=== PATIENT | female | born 1995 | race Caucasian/White ===

== ENCOUNTER 2016-08-31 19:18 | Emergency (ER) | payer BC, OTHER ==
[2016-08-31 19:26] VITALS: BP 123/58; PULSE 71; RESP 16; TEMP 98.2
[2016-08-31] MEDS ORDERED: SODIUM CHLORIDE 0.9% 1,000 ML IV ONE (20:19)
[2016-08-31] MEDS ORDERED: ONDANSETRON 4 MG/2 ML VIAL IVP STA (20:19)
[2016-08-31 20:53] LABS: Appearance,Urine Cloudy (Clear); Bacteria,Urine Occasional /hpf; Bilirubin,Urine Negative (Negative); Glucose,Urine (UA) Negative (Negative); Ketones,Urine Negative (Negative); Leukocyte Esterase,Urine Trace (Negative); Nitrite,Urine Negative (Negative); Particle Count 5154; Protein,Urine Trace (Negative); RBC,Urine 6 /hpf (0-5); Specific Gravity,Urine 1.022 (1.001-1.035); Squamous Epithelial Cell,Urine 11 /hpf (0-4); UA Billing (MACRO vs. MICRO) MICRO; WBC,Urine 6 /hpf (0-5)
[2016-08-31 20:57] LABS: ALT 29 U/L (9-52); AST 23 U/L (14-36); Alkaline Phosphatase 65 U/L (38-126); Anion Gap 10 mmol/L; Blood Urea Nitrogen 12 mg/dL (7-17); Calcium 9.2 mg/dL (8.4-10.2); Carbon Dioxide 26 mmol/L (22-30); Chloride 106 mmol/L (98-107); Glucose 84 mg/dL (74-99); Non-African American GFR(MDRD) >60 (>60 ml/min/1.73 sqM); Sodium 142 mmol/L (137-145); Total Bilirubin 0.6 mg/dL (0.2-1.3); Total Protein 6.6 g/dL (6.3-8.2)
--- NOTE | 2016-08-31 21:00 | ED ---
Nausea/Vomiting/Diarrhea HPI - General Chief complaint: Nausea/Vomiting/Diarrhea Stated complaint: Vomiting Source: patient Mode of arrival: ambulatory Limitations: no limitations - History of Present Illness Initial comments: 20-year-old female presented for evaluation of nausea and vomiting since night. She states that initially she was having 3-4 episodes a day but has only had 1 today. There are no palliative or exacerbating factors. Onset was sudden and there was associated migraine and mild periumbilical abdominal pain which she believes is likely due to the vomiting. She further denies any dysuria, diarrhea, constipation, hematuria, vaginal bleeding, vaginal discharge. Her last [place]. Was a week ago and was on time and normal flow. She is not tried any medications for improvement of her symptoms. She states that her 6 month daughter also had onset of symptoms about the same time she did. - Related Data Home Medications Medication Instructions Recorded Confirmed Dextroamphetamine/Amphetamine 10 mg PO DAILY 08/31/16 08/31/16 [Adderall] Previous Rx's Medication Instructions Recorded Ondansetron Odt [Zofran Odt] 4 mg PO Q8HR PRN #10 tab 08/31/16 Allergies Allergy/AdvReac Type Severity Reaction Status Date / Time No Known Allergies Allergy Verified 08/31/16 19:50 Review of Systems ROS Statement: Those systems with pertinent positive or pertinent negative responses have been documented in the HPI. ROS Other: All systems not noted in ROS Statement are negative. Constitutional: Denies: fever, chills Eyes: Denies: eye pain, eye discharge, vision change ENT: Denies: ear pain, throat pain Respiratory: Denies: cough, dyspnea Cardiovascular: Denies: chest pain, palpitations Endocrine: Denies: fatigue, polydipsia, polyuria Gastrointestinal: Reports: abdominal pain, nausea, vomiting. Denies: diarrhea, constipation, hematemesis, melena, hematochezia Genitourinary: Denies: urgency, dysuria, frequency, hematuria, abnormal menses Musculoskeletal: Denies: back pain, arthralgia, myalgia Skin: Denies: rash, lesions Neurological: Denies: headache, weakness Psychiatric: Denies: anxiety, depression Hematological/Lymphatic: Denies: easy bleeding, easy bruising Past Medical History Past Medical History: No Reported History Additional Past Medical History / Comment(s): ovarian cysts History of Any Multi-Drug Resistant Organisms: None Reported Past Surgical History: Tonsillectomy Past Anesthesia/Blood Transfusion Reactions: No Reported Reaction Past Psychological History: ADD/ADHD, Anxiety, Depression Smoking Status: Former smoker Past Alcohol Use History: None Reported Additional Past Alcohol Use History / Comment(s): Patient currently has a tether on her right ankle which she reports is related to "alcohol" Past Drug Use History: None Reported - Past Family History Mother Additional Family Medical History / Comment(s): depression Father Family Medical History: No Reported History Additional Family Medical History / Comment(s): bipolar General Exam Limitations: no limitations General appearance: alert, in no apparent distress Head exam: Present: atraumatic, normocephalic, normal inspection Eye exam: Present: normal appearance, PERRL, EOMI. Absent: scleral icterus, conjunctival injection, periorbital swelling ENT exam: Present: normal exam, mucous membranes moist Neck exam: Present: normal inspection. Absent: tenderness, meningismus, lymphadenopathy Respiratory exam: Present: normal lung sounds bilaterally. Absent: respiratory distress, wheezes, rales, rhonchi, stridor Cardiovascular Exam: Present: regular rate, normal rhythm, normal heart sounds. Absent: systolic murmur, diastolic murmur, rubs, gallop, clicks GI/Abdominal exam: Present: soft, tenderness (Periumbilical, mild), normal bowel sounds. Absent: distended, guarding, rebound, rigid Rectal exam: Present: deferred Extremities exam: Present: normal inspection, full ROM, normal capillary refill. Absent: tenderness, pedal edema, joint swelling, calf tenderness Back exam: Present: normal inspection Neurological exam: Present: alert, oriented X3, CN II-XII intact Psychiatric exam: Present: normal affect, normal mood Skin exam: Present: warm, dry, intact, normal color. Absent: rash Course Vital Signs 08/31/16 19:24 Temperature 98.2 F Pulse Rate 71 Respiratory 16 Rate Blood Pressure 123/58 O2 Sat by Pulse 98 Oximetry Medical Decision Making - Medical Decision Making 20-year-old female presenting for evaluation of nausea and vomiting since night. She's been having 3-4 episodes of diarrhea daily but was only had one today. There is no palliative or provocative factors. On physical examination she has a soft and non-peritoneal abdomen without guarding , rebound, or rigidity. Labs are obtained which revealed no significant abnormalities. The patient was reevaluated and had no recurrence of her nausea vomiting and felt much better after treatment. She was updated on the status of all her labs and through shared decision making it was determined that she would be discharged with instructions to follow-up with her primary care physician but to return to this facility if her symptoms should worsen or persist. The patient acknowledged an understanding of this information and agreed with this plan of care. - Lab Data Result diagrams: 08/31/16 20:30 08/31/16 20:30 Lab Results 08/31/16 08/31/16 08/31/16 Range/Units 20:30 20:30 20:30 WBC 4.7 (3.8-10.6) k/uL RBC 4.34 (3.80-5.40) m/uL Hgb 13.4 (11.4-16.0) gm/dL Hct 37.9 (34.0-46.0) % MCV 87.3 (80.0-100.0) fL MCH 30.8 (25.0-35.0) pg MCHC 35.3 (31.0-37.0) g/dL RDW 12.0 (11.5-15.5) % Plt Count 167 (150-450) k/uL Neutrophils % (Manual) 47.0 % Band Neutrophils % 2.0 % Lymphocytes % (Manual) 40.0 % Monocytes % (Manual) 4.0 % Eosinophils % (Manual) 7.0 % Neutrophils # (Manual) 2.3 (1.3-7.7) k/uL Lymphocytes # (Manual) 1.9 (1.0-4.8) k/uL Monocytes # (Manual) 0.2 (0-1.0) k/uL Eosinophils # (Manual) 0.3 (0-0.7) k/uL Nucleated RBCs 0 (0-0) /100 WBC Reactive Lymphocytes Present Sodium 142 (137-145) mmol/L Potassium 4.0 (3.5-5.1) mmol/L Chloride 106 (98-107) mmol/L Carbon Dioxide 26 (22-30) mmol/L Anion Gap 10 mmol/L BUN 12 (7-17) mg/dL Creatinine 0.60 (0.52-1.04) mg/dL Est GFR (MDRD) Af Amer >60 (>60 ml/min/1.73 sqM) Est GFR (MDRD) Non-Af >60 (>60 ml/min/1.73 sqM) Glucose 84 (74-99) mg/dL Calcium 9.2 (8.4-10.2) mg/dL Total Bilirubin 0.6 (0.2-1.3) mg/dL AST 23 (14-36) U/L ALT 29 (9-52) U/L Alkaline Phosphatase 65 (38-126) U/L Total Protein 6.6 (6.3-8.2) g/dL Albumin 4.2 (3.5-5.0) g/dL Lipase 108 (23-300) U/L Urine Color Urine Appearance (Clear) Urine pH (5.0-8.0) Ur Specific [place] (1.001-1.035) Urine Protein (Negative) Urine Glucose (UA) (Negative) Urine Ketones (Negative) Urine Blood (Negative) Urine Nitrite (Negative) Urine Bilirubin (Negative) Urine Urobilinogen (<2.0) mg/dL Ur Leukocyte Esterase (Negative) Urine RBC (0-5) /hpf Urine WBC (0-5) /hpf Ur Squamous Epith Cells (0-4) /hpf Urine Bacteria (None) /hpf Urine HCG, Qual Not Detected (Not Detectd) 08/31/16 Range/Units 20:30 WBC (3.8-10.6) k/uL RBC (3.80-5.40) m/uL Hgb (11.4-16.0) gm/dL Hct (34.0-46.0) % MCV (80.0-100.0) fL MCH (25.0-35.0) pg MCHC (31.0-37.0) g/dL RDW (11.5-15.5) % Plt Count (150-450) k/uL Neutrophils % (Manual) % Band Neutrophils % % Lymphocytes % (Manual) % Monocytes % (Manual) % Eosinophils % (Manual) % Neutrophils # (Manual) (1.3-7.7) k/uL Lymphocytes # (Manual) (1.0-4.8) k/uL Monocytes # (Manual) (0-1.0) k/uL Eosinophils # (Manual) (0-0.7) k/uL Nucleated RBCs (0-0) /100 WBC Reactive Lymphocytes Sodium (137-145) mmol/L Potassium (3.5-5.1) mmol/L Chloride (98-107) mmol/L Carbon Dioxide (22-30) mmol/L Anion Gap mmol/L BUN (7-17) mg/dL Creatinine (0.52-1.04) mg/dL Est GFR (MDRD) Af Amer (>60 ml/min/1.73 sqM) Est GFR (MDRD) Non-Af (>60 ml/min/1.73 sqM) Glucose (74-99) mg/dL Calcium (8.4-10.2) mg/dL Total Bilirubin (0.2-1.3) mg/dL AST (14-36) U/L ALT (9-52) U/L Alkaline Phosphatase (38-126) U/L Total Protein (6.3-8.2) g/dL Albumin (3.5-5.0) g/dL Lipase (23-300) U/L Urine Color Yellow Urine Appearance Cloudy H (Clear) Urine pH 8.0 (5.0-8.0) Ur Specific [place] 1.022 (1.001-1.035) Urine Protein Trace H (Negative) Urine Glucose (UA) Negative (Negative) Urine Ketones Negative (Negative) Urine Blood Negative (Negative) Urine Nitrite Negative (Negative) Urine Bilirubin Negative (Negative) Urine Urobilinogen 6.0 (<2.0) mg/dL Ur Leukocyte Esterase Trace H (Negative) Urine RBC 6 H (0-5) /hpf Urine WBC 6 H (0-5) /hpf Ur Squamous Epith Cells 11 H (0-4) /hpf Urine Bacteria Occasional H (None) /hpf Urine HCG, Qual (Not Detectd) Disposition Clinical Impression: Nausea and vomiting Disposition: HOME SELF-CARE Condition: Stable Instructions: Acute Nausea and Vomiting (ED) Additional Instructions: Please use medication as discussed. Please follow up with family doctor if symptoms have not improved over the next two days. Please return to the emergency room if your symptoms increase or worsen or for any other concerns. Prescriptions: Ondansetron Odt [Zofran Odt] 4 mg PO Q8HR PRN #10 tab PRN Reason: Nausea Referrals: Yvette Lin DO [Primary Care Provider] - 1-2 days Time of Disposition: 21:51
[2016-08-31 21:02] LABS: CH 31.8; CHCM 36.6; HCT 37.9 % (34.0-46.0); HDW 2.68; HGB 13.4 gm/dL (11.4-16.0); MCH 30.8 pg (25.0-35.0); MCHC 35.3 g/dL (31.0-37.0); MCV 87.3 fL (80.0-100.0); Mean Platelet Volume 7.2; RBC 4.34 m/uL (3.80-5.40); WBC 4.7 k/uL (3.8-10.6); WBC (Perox) 4.57
[2016-08-31 21:22] LABS: Add Differential Manual Differential
[2016-08-31 21:27] LABS: Nucleated Red Blood Cells 0 /100 WBC (0-0); Total Cells Counted 100
[2016-08-31 21:33] LABS: Reactive Lymphocytes Present
== END 2016-08-31 22:36 | disposition home or self-care (01) ==
LOC: EC 19:18
DX: R11.2 Nausea with vomiting, unspecified (principal); R10.33 Periumbilical pain; R19.7 Diarrhea, unspecified; F90.9 Attention-deficit hyperactivity disorder, unspecified type; F32.9 Major depressive disorder, single episode, unspecified; F41.9 Anxiety disorder, unspecified; Z87.891 Personal history of nicotine dependence; Z79.899 Other long term (current) drug therapy
CPT/HCPCS: 99284; 96374; 36415; 80053; 83690; 85025; 81001; 81025; J2405

== ENCOUNTER 2016-09-24 17:12 | Emergency (ER) | payer BC, OTHER ==
[2016-09-24] MEDS ORDERED: KETOROLAC 30 MG/ML 1 ML VIAL IVP STA (18:20)
[2016-09-24] MEDS ORDERED: ONDANSETRON 4 MG/2 ML VIAL IVP STA (18:20)
[2016-09-24] MEDS ORDERED: SODIUM CHLORIDE 0.9% 1,000 ML IV ONE (18:20)
--- NOTE | 2016-09-24 18:25 | ED ---
Abdominal Pain HPI - General Source: patient, RN notes reviewed Mode of arrival: ambulatory Limitations: no limitations <Ethel Gonzalez - Last Filed: 09/24/16 20:12> <[place] Hu - Last Filed: 09/24/16 21:50> - General Chief Complaint: Abdominal Pain Stated Complaint: RT SIDE PAIN, ABDOMINAL PAON Time Seen by Provider: 09/24/16 18:01 - History of Present Illness Initial Comments: Patient is a 20-year-old female presents to the emergency room for evaluation of abdominal pain. Patient states around 1 PM this afternoon she began developing right lower quadrant pain. Patient states pain radiates to her right flank area. Patient states she never had this type of pain before. Patient states she is having 8 out of 10 constant throbbing pain but is not any worse or better with movement. Patient states the pain is making her nauseous but she denies any vomiting. Patient denies fevers or chills. Patient denies history of abdominal surgeries. Patient denies pain or burning during urination , trouble urinating or blood in urine. Patient has a normal vaginal discharge or discomfort. Patient denies history of STDs. Patient denies history of ovarian cyst. Patient states she has a history of one miscarriage and one full- term . Patient states she just ended her menstrual cycle yesterday. Patient denies chest pain or shortness of breath. Patient denies headache or dizziness. (Ethel Gonzalez) - Related Data Home Medications Medication Instructions Recorded Confirmed Dextroamphetamine/Amphetamine 10 mg PO DAILY 08/31/16 09/24/16 [Adderall] Previous Rx's Medication Instructions Recorded Ibuprofen [Motrin] 400 mg PO Q6HR PRN #20 tab 09/24/16 Allergies Allergy/AdvReac Type Severity Reaction Status Date / Time No Known Allergies Allergy Verified 09/24/16 18:14 Review of Systems ROS Other: All systems not noted in ROS Statement are negative. <Ethel Gonzalez - Last Filed: 09/24/16 20:12> ROS Other: All systems not noted in ROS Statement are negative. <[place] Hu - Last Filed: 09/24/16 21:50> ROS Statement: Those systems with pertinent positive or pertinent negative responses have been documented in the HPI. Past Medical History Past Medical History: No Reported History Additional Past Medical History / Comment(s): ovarian cysts History of Any Multi-Drug Resistant Organisms: None Reported Past Surgical History: Tonsillectomy Past Anesthesia/Blood Transfusion Reactions: No Reported Reaction Past Psychological History: ADD/ADHD, Anxiety, Depression Smoking Status: Current every day smoker Past Alcohol Use History: None Reported Additional Past Alcohol Use History / Comment(s): Patient currently has a tether on her right ankle which she reports is related to "alcohol" Past Drug Use History: None Reported - Past Family History Mother Additional Family Medical History / Comment(s): depression Father Family Medical History: No Reported History Additional Family Medical History / Comment(s): bipolar <Ethel Gonzalez - Last Filed: 09/24/16 20:12> General Exam Limitations: no limitations General appearance: alert, in no apparent distress Head exam: Present: atraumatic, normocephalic, normal inspection Eye exam: Present: normal appearance ENT exam: Present: normal exam Neck exam: Present: normal inspection Respiratory exam: Present: normal lung sounds bilaterally. Absent: respiratory distress Cardiovascular Exam: Present: regular rate, normal rhythm, normal heart sounds GI/Abdominal exam: Present: soft, tenderness (right lower quadrant), normal bowel sounds. Absent: distended, guarding, rebound, rigid Extremities exam: Present: normal inspection Back exam: Present: normal inspection, CVA tenderness (R). Absent: CVA tenderness (L) Neurological exam: Present: alert, oriented X3, CN II-XII intact, normal gait Psychiatric exam: Present: normal affect, normal mood Skin exam: Present: warm, dry, intact, normal color. Absent: rash <Ethel Gonzalez - Last Filed: 09/24/16 20:12> <[place] Hu - Last Filed: 09/24/16 21:50> - General Exam Comments Initial Comments: sitting up in exam room, no acute distress. (Ethel Gonzalez) Medical Decision Making - Lab Data Result diagrams: 09/24/16 18:39 09/24/16 18:39 - Radiology Data Radiology results: report reviewed, image reviewed <Ethel Gonzalez - Last Filed: 09/24/16 20:12> - Lab Data Result diagrams: 09/24/16 18:39 09/24/16 18:39 <[place] Hu - Last Filed: 09/24/16 21:50> - Medical Decision Making patient is a 20-year-old female presents to the emergency room for evaluation of right lower quadrant pain. Ultrasound shows no evidence of ovarian torsion or ovarian cyst. Appendix not fully visualized on ultrasound. Case discussed with Dr. Hu. Computed tomography scan of abdomen and pelvis pending. Case passed on to Dr. Hu at 8:15 PM. (Ethel Gonzalez) medical decision making the patient's white count 5 hemoglobin 12.9 hematocrit 37 with a potassium 4.0 BUN 8 creatinine 0.55 GFR greater than 60. Glucose 89. Amylase lipase within normal limits. Urine clean. is negative. Patient has CT the abdomen with contrast to rule out appendicitis. The radiologist's dictation is normal appendix. There is a small right ovarian follicle. Patient has had a history of ovarian cysts in the past. Reexamination at this time finds patient without rebound no reported no referred pain. The pain she had earlier subsided. No pain with deep palpation over McBurney's point mild discomfort with deep palpation in the very lowest most part of the abdomen. We did discuss ovarian cysts. The plan the patient be advised to use ibuprofen 600 mg at home follow with family physician or OB/ CHIEF INTERNAL AUDITOR as needed. Return emergency room with condition changes. Dr. Hu ([place] Hu) - Lab Data Lab Results 09/24/16 09/24/16 09/24/16 Range/Units 18:39 18:39 19:00 WBC 5.0 (3.8-10.6) k/uL RBC 4.09 (3.80-5.40) m/uL Hgb 12.9 (11.4-16.0) gm/dL Hct 37.6 (34.0-46.0) % MCV 91.9 (80.0-100.0) fL MCH 31.5 (25.0-35.0) pg MCHC 34.3 (31.0-37.0) g/dL RDW 12.8 (11.5-15.5) % Plt Count 180 (150-450) k/uL Neutrophils % 64 % Lymphocytes % 25 % Monocytes % 5 % Eosinophils % 3 % Basophils % 1 % Neutrophils # 3.2 (1.3-7.7) k/uL Lymphocytes # 1.3 (1.0-4.8) k/uL Monocytes # 0.3 (0-1.0) k/uL Eosinophils # 0.2 (0-0.7) k/uL Basophils # 0.0 (0-0.2) k/uL Sodium 140 (137-145) mmol/L Potassium 4.0 (3.5-5.1) mmol/L Chloride 107 (98-107) mmol/L Carbon Dioxide 26 (22-30) mmol/L Anion Gap 7 mmol/L BUN 8 (7-17) mg/dL Creatinine 0.55 (0.52-1.04) mg/dL Est GFR (MDRD) Af Amer >60 (>60 ml/min/1.73 sqM) Est GFR (MDRD) Non-Af >60 (>60 ml/min/1.73 sqM) Glucose 89 (74-99) mg/dL Calcium 9.5 (8.4-10.2) mg/dL Total Bilirubin 0.7 (0.2-1.3) mg/dL AST 19 (14-36) U/L ALT 26 (9-52) U/L Alkaline Phosphatase 70 (38-126) U/L Total Protein 7.2 (6.3-8.2) g/dL Albumin 4.6 (3.5-5.0) g/dL Amylase 49 (30-110) U/L Lipase 97 (23-300) U/L Urine Color Urine Appearance (Clear) Urine pH (5.0-8.0) Ur Specific [place] (1.001-1.035) Urine Protein (Negative) Urine Glucose (UA) (Negative) Urine Ketones (Negative) Urine Blood (Negative) Urine Nitrite (Negative) Urine Bilirubin (Negative) Urine Urobilinogen (<2.0) mg/dL Ur Leukocyte Esterase (Negative) Urine WBC (0-5) /hpf Urine Bacteria (None) /hpf Urine HCG, Qual Not Detected (Not Detectd) 09/24/16 Range/Units 19:00 WBC (3.8-10.6) k/uL RBC (3.80-5.40) m/uL Hgb (11.4-16.0) gm/dL Hct (34.0-46.0) % MCV (80.0-100.0) fL MCH (25.0-35.0) pg MCHC (31.0-37.0) g/dL RDW (11.5-15.5) % Plt Count (150-450) k/uL Neutrophils % % Lymphocytes % % Monocytes % % Eosinophils % % Basophils % % Neutrophils # (1.3-7.7) k/uL Lymphocytes # (1.0-4.8) k/uL Monocytes # (0-1.0) k/uL Eosinophils # (0-0.7) k/uL Basophils # (0-0.2) k/uL Sodium (137-145) mmol/L Potassium (3.5-5.1) mmol/L Chloride (98-107) mmol/L Carbon Dioxide (22-30) mmol/L Anion Gap mmol/L BUN (7-17) mg/dL Creatinine (0.52-1.04) mg/dL Est GFR (MDRD) Af Amer (>60 ml/min/1.73 sqM) Est GFR (MDRD) Non-Af (>60 ml/min/1.73 sqM) Glucose (74-99) mg/dL Calcium (8.4-10.2) mg/dL Total Bilirubin (0.2-1.3) mg/dL AST (14-36) U/L ALT (9-52) U/L Alkaline Phosphatase (38-126) U/L Total Protein (6.3-8.2) g/dL Albumin (3.5-5.0) g/dL Amylase (30-110) U/L Lipase (23-300) U/L Urine Color Light Yellow Urine Appearance Clear (Clear) Urine pH 6.5 (5.0-8.0) Ur Specific [place] 1.003 (1.001-1.035) Urine Protein Negative (Negative) Urine Glucose (UA) Negative (Negative) Urine Ketones Negative (Negative) Urine Blood Small H (Negative) Urine Nitrite Negative (Negative) Urine Bilirubin Negative (Negative) Urine Urobilinogen <2.0 (<2.0) mg/dL Ur Leukocyte Esterase Negative (Negative) Urine WBC 1 (0-5) /hpf Urine Bacteria Rare H (None) /hpf Urine HCG, Qual (Not Detectd) Disposition <Ethel Gonzalez - Last Filed: 09/24/16 20:12> Time of Disposition: 21:50 <Fritz,[place] - Last Filed: 09/24/16 21:50> Clinical Impression: Ovarian cyst Disposition: HOME SELF-CARE Condition: Fair Instructions: Ovarian Cyst (ED) Additional Instructions: Take ibuprofen 400 mg every 6 hours for pain. Follow-up family physician return emergency room as needed Prescriptions: Ibuprofen [Motrin] 400 mg PO Q6HR PRN #20 tab PRN Reason: Pain Referrals: Yvette Lin DO [Primary Care Provider] - 1-2 days
[2016-09-24 18:52] LABS: Basophils % (A) 1 %; CH 31.8; CHCM 34.7; Eosinophils # (A) 0.2 k/uL (0-0.7); Eosinophils % (A) 3 %; HCT 37.6 % (34.0-46.0); HDW 2.49; HGB 12.9 gm/dL (11.4-16.0); Luc # (Auto) 0.09; Luc % (Auto) 2; Lymphocytes # (A) 1.3 k/uL (1.0-4.8); Lymphocytes % (A) 25 %; MCH 31.5 pg (25.0-35.0); MCHC 34.3 g/dL (31.0-37.0); MCV 91.9 fL (80.0-100.0); Mean Platelet Volume 7.4; Monocytes # (A) 0.3 k/uL (0-1.0); Monocytes % (A) 5 %; Neutrophils # (A) 3.2 k/uL (1.3-7.7); Neutrophils % (A) 64 %; RBC 4.09 m/uL (3.80-5.40); RDW 12.8 % (11.5-15.5); WBC (Perox) 5.21
[2016-09-24 19:07] LABS: ALT 26 U/L (9-52); AST 19 U/L (14-36); Alkaline Phosphatase 70 U/L (38-126); Amylase 49 U/L (30-110); Anion Gap 7 mmol/L; Blood Urea Nitrogen 8 mg/dL (7-17); Calcium 9.5 mg/dL (8.4-10.2); Carbon Dioxide 26 mmol/L (22-30); Chloride 107 mmol/L (98-107); Glucose 89 mg/dL (74-99); Non-African American GFR(MDRD) >60 (>60 ml/min/1.73 sqM); Sodium 140 mmol/L (137-145); Total Bilirubin 0.7 mg/dL (0.2-1.3); Total Protein 7.2 g/dL (6.3-8.2)
[2016-09-24 19:25] LABS: Appearance,Urine Clear (Clear); Bacteria,Urine Rare /hpf; Bilirubin,Urine Negative (Negative); Glucose,Urine (UA) Negative (Negative); Ketones,Urine Negative (Negative); Leukocyte Esterase,Urine Negative (Negative); Nitrite,Urine Negative (Negative); PH, Urine 6.5 (5.0-8.0); Particle Count 1100; Protein,Urine Negative (Negative); Specific Gravity,Urine 1.003 (1.001-1.035); UA Billing (MACRO vs. MICRO) MICRO; Urobilinogen,Urine <2.0 mg/dL (<2.0); WBC,Urine 1 /hpf (0-5)
--- NOTE | 2016-09-24 20:05 | US ---
EXAMINATION TYPE: US abdomen APPY DATE OF EXAM: 09/24/2016 COMPARISON: NONE CLINICAL HISTORY: Pain. APPENDIX AP Diameter (normal < 6mm): 4 mm Measured outer wall to outer wall. Is the appendix seen in its entirety from the proximal cecum to distal end: No. The appendix is not visualized in its entirety. There is a tube like structure visualized in the RLQ measuring 0.4 cm Is the appendix compressible: Yes, this area is compressable Does the appendix wall appear hypervascular: No Is an appendicolith present: No Is there inflammatory changes or free fluid present: No IMPRESSION: Partially visualized appendix appears within normal limits although it is not seen in it s entirety.
[2016-09-24] MEDS ORDERED: HYDROmorphone 1 MG/ML 1 ML SYRINGE IVP STA (20:06)
--- NOTE | 2016-09-24 20:06 | US ---
EXAMINATION TYPE: US transvaginal DATE OF EXAM: 09/24/2016 COMPARISON: Prior in PACS CLINICAL HISTORY: RLQ Pain. TECHNIQUE: Transvaginal (TV) Date of LMP: 09/19/2016 EXAM MEASUREMENTS: Uterus: 6.6 x 2.7 x 4.4 cm Endometrial Stripe: 0.5 cm Right Ovary: 4.3 x 2.8 x 2.7 cm Left Ovary: 3.4 x 2.3 x 2.3 cm 1. Uterus: Anteverted wnl 2. Endometrium: wnl 3. Right Ovary: Multiple follicles visualized, largest measuring 2.2 x 1.1 x 1.5 cm 4. Left Ovary: Multiple follicles visualized Spectral, color and waveform doppler imaging shows good arterial and venous flow within the ovaries ; there is no evidence for ovarian torsion. 5. Bilateral Adnexa: wnl 6. Posterior cul-de-sac: wnl IMPRESSION: 1. Small ovarian follicles noted bilaterally. Otherwise unremarkable study.
[2016-09-24] MEDS ORDERED: RX INFO: IV CONTRAST WAS GIVEN 1 EACH MISC MISCELLANE PRN (20:10)
--- NOTE | 2016-09-24 20:43 | CT ---
EXAMINATION TYPE: CT abdomen pelvis w con DATE OF EXAM: 09/24/2016 COMPARISON: NONE HISTORY: Right sided Abdominal pain CT DLP: 319.1 mGycm CONTRAST: CT scan of the abdomen and pelvis is performed without Oral Contrast and with IV Contrast, patient in jected with 100 mL of Omnipaque 300. FINDINGS: LUNG BASES-: No visible nodule. No infiltrate. LIVER/GB: No calcified gallstones. No space occupying hepatic lesion. Biliary tree is of normal ca liber. PANCREAS: No inflammation. No distinct mass. SPLEEN: No splenic enlargement. No lesion seen. ADRENALS: No nodule. No thickening. KIDNEYS/BLADDER: No hydronephrosis. No nephrolithiasis. No disctinct renal mass. Urinary bladder g rossly unremarkable. BOWEL: Normal appendix. Normal bowel caliber. No inflammation. GENITAL ORGANS: Small right ovarian follicular cyst. The uterus and left ovary are grossly unremarka ble. LYMPH NODES: No greater than 1cm abdominal or pelvic lymph nodes are appreciated. AORTA: No significant abnormality. OSSEOUS STRUCTURES: No significant abnormality is seen. OTHER: No significant additional abnormality is seen. IMPRESSION: 1. Normal appendix. No acute process identified. 2. Small right ovarian follicle.
[2016-09-24 22:14] VITALS: BP 104/61; PULSE 66; RESP 18; TEMP 98.1
== END 2016-09-24 22:14 | disposition home or self-care (01) ==
LOC: EC 17:12
DX: N83.201 Unspecified ovarian cyst, right side (principal); R10.31 Right lower quadrant pain; R11.0 Nausea; F90.9 Attention-deficit hyperactivity disorder, unspecified type; F32.9 Major depressive disorder, single episode, unspecified; F41.9 Anxiety disorder, unspecified; F17.200 Nicotine dependence, unspecified, uncomplicated; Z79.899 Other long term (current) drug therapy
CPT/HCPCS: 36415; 80053; 82150; 83690; 85025; 81001; 81025; 93975; 76705; 76830; 74177; 99284; 96374; 96375 ×2; 96361 ×2; J2405; J1885; J1170; Q9967

== ENCOUNTER 2017-06-03 12:06 | Outpatient (CLI) | payer BC, OTHER ==
[2017-06-03 14:14] VITALS: BP 125/64; PULSE 102; RESP 16; TEMP 98
--- NOTE | 2017-06-04 08:30 | P.MSEPDOC ---
Presenting Problems - Arrival Data Date of Arrival on Unit: 06/03/17 Time of Arrival on Unit: 12:06 Mode of Transport: Ambulatory - Complaint OB-Reason for Admission/Chief Complaint: Rule Out PROM Medical History - Information : 2 Para: 1 Term: 1 : 0 Abortions: Spontaneous or Elective: 0 Number of Living Children: 1 - Gestational Age Gestational Age by ORTIZ (wks/days): 34 Weeks and 6 Days Review of Systems - Review of Systems Constitutional: No problems Breast: No problems ENT: No problems Cardiovascular: No problems Respiratory: No problems Gastrointestinal: No problems Genitourinary: No problems Musculoskeletal: No problems Neurological: No problems Skin: No problems Vital Signs - Temperature Temperature: 98.0 F Temperature Source: Tympanic - Pulse Right Brachial Pulse Rate: 102 - Respirations Respiratory Rate: 16 Oxygen Delivery Method: Room Air - Blood Pressure Right Arm Blood Pressure: 125/64 Blood Pressure Mean: 84 Blood Pressure Source: Automatic Cuff Medical Screen Scoring (Pre) - Cervical Exam Dilation: 1-3 cm = 1 Effacement: More than 50% = 2 Membranes: Intact - Uterine Contractions Frequency: N/A Duration: N/A Intensity: N/A - Maternal Vital Signs Maternal Temperature: N/A Maternal Blood Pressure: N/A Signs of Preeclampsia: N/A Maternal Respirations: N/A - Pain Assessment Pain Scale Used: Numeric (1 - 10) Pain Intensity: 0 Pain Management Goal: 0 - Maternal Trauma Maternal Trauma: N/A - Assessment Baseline FHR: 155 Heart Rate - NICHD Category: Category I (Normal) = 0 - Total Score Total Score (Pre): 3 - Level of Risk Level of Risk: Low (0-5) Physician Notification (Pre) - Physician Notified Physician Notified Date: 06/03/17 Physician Notified Time: 13:00 Physician/Practitioner Notifed:: Dr. Valentine Spoke With: Dr. Valentine New Order Received: Yes - Notification Comment Comment: D/C home Disposition - Disposition OB Disposition: Discharge to home Discharge Date: 06/03/17 Discharge Time: 13:15 I agree with the RN Medical Screening Exam: Yes Risk & Benefit of care provided described in d/c instruction: Yes Diagnosis: FALSE LABOR BEFORE 37 COMPLETED WEEKS OF GEST, THIRD TRI
== END 2017-06-03 13:15 | disposition home or self-care (01) ==
LOC: FBPOP 12:06
PROVIDERS: ATTEND Obstetrics & Gynecology
DX: O47.03 False labor before 37 completed weeks of gestation, third trimester (principal); Z3A.34 34 weeks gestation of pregnancy
CPT/HCPCS: 59025; 84112; 99213

== ENCOUNTER 2017-06-12 06:55 | Outpatient (CLI) | payer BC, OTHER ==
[2017-06-12 08:11] VITALS: BP 126/76; PULSE 105; RESP 16; TEMP 97.2
--- NOTE | 2017-06-12 08:38 | P.MSEPDOC ---
Presenting Problems - Arrival Data Date of Arrival on Unit: 06/12/17 Time of Arrival on Unit: 06:55 Mode of Transport: Ambulatory - Complaint OB-Reason for Admission/Chief Complaint: Possible Onset of Labor Comment: contractions since 0200, 2-3 min Medical History - Information : 2 Para: 1 Term: 1 : 0 Abortions: Spontaneous or Elective: 0 Number of Living Children: 1 - Gestational Age Gestational Age by ORTIZ (wks/days): 36 Weeks and 1 Days Review of Systems - Review of Systems Constitutional: No problems Breast: No problems ENT: No problems Cardiovascular: No problems Respiratory: No problems Gastrointestinal: No problems Genitourinary: No problems Musculoskeletal: No problems Neurological: No problems Skin: No problems Vital Signs - Temperature Temperature: 97.2 F Temperature Source: Temporal Artery Scan - Pulse Right Pulse Rate: 105 Pulse Assessment Method: Automatic Cuff - Respirations Respiratory Rate: 16 Oxygen Delivery Method: Room Air O2 Sat by Pulse Oximetry: 99 - Blood Pressure Right Arm Blood Pressure: 126/76 Blood Pressure Mean: 92 Blood Pressure Source: Automatic Cuff Medical Screen Scoring (Pre) - Cervical Exam Dilation: 1-3 cm = 1 - Uterine Contractions Frequency: > or = 36 weeks =2 Duration: > 40 seconds = 2 - Maternal Vital Signs Maternal Temperature: N/A Maternal Blood Pressure: N/A Signs of Preeclampsia: N/A Maternal Respirations: N/A - Pain Assessment Pain Location and Character: Abdomen Pain Scale Used: Numeric (1 - 10) Pain Intensity: 5 Pain Description: *Acute, Tightness Pain Frequency: Intermittent Pain Duration: 4 Pain Duration Units: Hours Pain Behavior: None Exhibited Pain Aggravating Factors: Contractions Non-Pharmacological Interventions: Darkened Room, Reduce Environmental Stimuli - Maternal Trauma Maternal Trauma: N/A - Assessment Baseline FHR: 135 Heart Rate - NICHD Category: Category I (Normal) = 0 NST: Reactive Position: N/A Station: N/A - Total Score Total Score (Pre): 5 - Level of Risk Level of Risk: Low (0-5) Disposition - Disposition OB Disposition: Triage I agree with the RN Medical Screening Exam: Yes Risk & Benefit of care provided described in d/c instruction: Yes Diagnosis: FALSE LABOR BEFORE 37 COMPLETED WEEKS OF GEST, THIRD TRI
== END 2017-06-12 08:35 | disposition home or self-care (01) ==
LOC: FBPOP 06:55
PROVIDERS: ATTEND Obstetrics & Gynecology
DX: O47.03 False labor before 37 completed weeks of gestation, third trimester (principal); Z3A.36 36 weeks gestation of pregnancy
CPT/HCPCS: 59025; 99213

== ENCOUNTER 2017-06-13 22:25 | Outpatient (CLI) | payer BC, OTHER ==
[2017-06-13 23:19] VITALS: BP 134/67; PULSE 98; RESP 16; TEMP 97.8
--- NOTE | 2017-07-08 17:37 | P.MSEPDOC ---
Presenting Problems - Arrival Data Date of Arrival on Unit: 06/13/17 Time of Arrival on Unit: 22:28 Mode of Transport: Ambulatory - Complaint OB-Reason for Admission/Chief Complaint: Rule Out PROM Comment: small trickle of clear fluid noted by patient about 1 hour before arrival on unit. Medical History - Information : 2 Para: 1 Term: 1 : 0 Abortions: Spontaneous or Elective: 0 Number of Living Children: 1 - Gestational Age Gestational Age by ORTIZ (wks/days): 36 Weeks and 2 Days Review of Systems - Review of Systems Constitutional: No problems Breast: No problems ENT: No problems Cardiovascular: No problems Respiratory: No problems Gastrointestinal: No problems Genitourinary: No problems Musculoskeletal: No problems Neurological: No problems Skin: No problems Vital Signs - Temperature Temperature: 97.8 F Temperature Source: Temporal Artery Scan - Pulse Right Sitting Brachial Pulse Rate: 98 Pulse Assessment Method: Automatic Cuff - Respirations Respiratory Rate: 16 Oxygen Delivery Method: Room Air - Blood Pressure Right Arm Sitting Blood Pressure: 134/67 Blood Pressure Mean: 89 Blood Pressure Source: Automatic Cuff Medical Screen Scoring (Pre) - Cervical Exam Dilation: 1-3 cm = 1 Effacement: Exam Deferred Membranes: Intact - Uterine Contractions Frequency: N/A Duration: N/A Intensity: N/A - Maternal Vital Signs Maternal Temperature: N/A Maternal Blood Pressure: N/A Signs of Preeclampsia: N/A Maternal Respirations: N/A - Pain Assessment Pain Location and Character: Lower, Abdomen Pain Scale Used: Numeric (1 - 10) Pain Intensity: 4 Pain Description: Pressure Pain Radiation Location: 0 Pain Frequency: Constant Pain Duration: 1 Pain Duration Units: Hours Pain Behavior: None Exhibited Effects of Pain: 0 Pain Aggravating Factors: None Non-Pharmacological Interventions: Inactivity - Maternal Trauma Maternal Trauma: N/A - Assessment Baseline FHR: 130 Heart Rate - NICHD Category: Category I (Normal) = 0 NST: Reactive Position: N/A - Total Score Total Score (Pre): 1 - Level of Risk Level of Risk: N/A Physician Notification (Pre) - Physician Notified Physician Notified Date: 06/13/17 Physician Notified Time: 22:48 Physician/Practitioner Notifed:: dr quezada Spoke With: dr quezada New Order Received: Yes Disposition - Disposition OB Disposition: Discharge to home Discharge Date: 06/13/17 Discharge Time: 22:55 I agree with the RN Medical Screening Exam: Yes Risk & Benefit of care provided described in d/c instruction: Yes Diagnosis: RELATED CONDITIONS, UNSPECIFIED, THIRD TRIMESTER (r/o srom)
== END 2017-06-13 22:55 | disposition home or self-care (01) ==
LOC: FBPOP 22:25
PROVIDERS: ATTEND Obstetrics & Gynecology
DX: O26.93 Pregnancy related conditions, unspecified, third trimester (principal); Z3A.36 36 weeks gestation of pregnancy
CPT/HCPCS: 59025; 99213

== ENCOUNTER 2017-06-20 23:30 | Outpatient (CLI) | payer BC, OTHER ==
[2017-06-21 01:08] VITALS: BP 117/62; PULSE 103; RESP 16; TEMP 97.2
--- NOTE | 2017-06-21 06:58 | P.MSEPDOC ---
Presenting Problems - Arrival Data Date of Arrival on Unit: 06/20/17 Time of Arrival on Unit: 23:31 Mode of Transport: Wheelchair - Complaint OB-Reason for Admission/Chief Complaint: Possible Onset of Labor Comment: contx all day, became stronger at 2100 Medical History - Information : 2 Para: 1 Term: 1 : 0 Abortions: Spontaneous or Elective: 0 Number of Living Children: 1 - Gestational Age Gestational Age by ORTIZ (wks/days): 37 Weeks and 3 Days Review of Systems - Review of Systems Constitutional: No problems Breast: No problems ENT: No problems Cardiovascular: No problems Respiratory: No problems Gastrointestinal: No problems Genitourinary: No problems Musculoskeletal: No problems Neurological: No problems Skin: No problems Vital Signs - Temperature Temperature: 97.2 F Temperature Source: Temporal Artery Scan - Pulse Right Sitting Brachial Pulse Rate: 103 Pulse Assessment Method: Automatic Cuff - Respirations Respiratory Rate: 16 Oxygen Delivery Method: Room Air O2 Sat by Pulse Oximetry: 98 - Blood Pressure Right Arm Sitting Blood Pressure: 117/62 Blood Pressure Mean: 80 Blood Pressure Source: Automatic Cuff Medical Screen Scoring (Pre) - Cervical Exam Dilation: 4-7 cm = 2 Effacement: More than 50% = 2 Membranes: Intact - Uterine Contractions Frequency: > 5 minutes apart = 1 Duration: N/A Intensity: N/A - Maternal Vital Signs Maternal Temperature: N/A Maternal Blood Pressure: N/A Signs of Preeclampsia: N/A Maternal Respirations: N/A - Pain Assessment Pain Location and Character: Abdomen Pain Scale Used: Numeric (1 - 10) Pain Intensity: 5 Pain Management Goal: 3 Pain Description: *Acute, Cramping Pain Radiation Location: N/A Pain Frequency: Intermittent Pain Duration: 3 Pain Duration Units: Hours Pain Behavior: Vocalization Pain Aggravating Factors: Activity - Assessment Baseline FHR: 125 Heart Rate - NICHD Category: Category II (Indeterminate) = 3 Position: N/A Station: N/A - Total Score Total Score (Pre): 8 - Level of Risk Level of Risk: Medium (6-9) Physician Notification (Pre) - Physician Notified Physician Notified Date: 06/21/17 Physician Notified Time: 00:56 Physician/Practitioner Notifed:: ONEAL Spoke With: oneal Tao Order Received: Yes - Notification Comment Comment: discharge home. Disposition - Disposition OB Disposition: Discharge to home Discharge Date: 06/21/17 Discharge Time: 00:55 I agree with the RN Medical Screening Exam: Yes Risk & Benefit of care provided described in d/c instruction: Yes Diagnosis: FALSE LABOR AT OR AFTER 37 COMPLETED WEEKS OF GESTATION
== END 2017-06-21 00:55 | disposition home or self-care (01) ==
LOC: FBPOP 23:30
PROVIDERS: ATTEND Obstetrics & Gynecology
DX: O47.03 False labor before 37 completed weeks of gestation, third trimester (principal); Z3A.37 37 weeks gestation of pregnancy
CPT/HCPCS: 59025; 99213

== ENCOUNTER 2017-06-24 02:25 | Inpatient (IN) | payer BC, OTHER ==
[2017-06-24] MEDS: LACTATED RINGERS 1,000 ML IV SCH ×3 (03:00→10:29)
[2017-06-24 03:05] VITALS: BMI 31.5
[2017-06-24] MEDS ORDERED: TERBUTALINE 1 MG/ML VIAL SQ PRN (03:05)
[2017-06-24] MEDS ORDERED: LIDOCAINE 1% (PF) 10 MG/ML (30 ML SDV) SQ PRN (03:05)
[2017-06-24] MEDS ORDERED: METHYLERGONOVINE 0.2 MG/ML 1 ML AMP IM PRN (03:05)
[2017-06-24] MEDS ORDERED: OXYTOCIN 10 UNIT/ML 1 ML VIAL IM PRN (03:05)
[2017-06-24] MEDS ORDERED: CARBOPROST TROMETHAMINE 250 MCG/ML 1 ML AMP IM PRN (03:05)
[2017-06-24 03:14] LABS: Basophils % (A) 0 %; Eosinophils # (A) 0.1 k/uL (0-0.7); Eosinophils % (A) 2 %; HCT 32.4 % (34.0-46.0); Lymphocytes # (A) 1.9 k/uL (1.0-4.8); Lymphocytes % (A) 21 %; MCH 31.6 pg (25.0-35.0); MCHC 33.9 g/dL (31.0-37.0); MCV 93.4 fL (80.0-100.0); Mean Platelet Volume 7.6; Monocytes # (A) 0.5 k/uL (0-1.0); Monocytes % (A) 6 %; Neutrophils # (A) 6.2 k/uL (1.3-7.7); Neutrophils % (A) 69 %; Platelet Count 183 k/uL (150-450); RBC 3.47 m/uL (3.80-5.40); RDW 12.3 % (11.5-15.5); WBC 8.9 k/uL (3.8-10.6)
[2017-06-24] MEDS ORDERED: LACTATED RINGERS 1,000 ML IV SCH (03:15)
[2017-06-24] MEDS ORDERED: OXYTOCIN 20 UNITS/1000 ML NS 1,000 ML IV SCH ×2 (03:15→11:40)
--- NOTE | 2017-06-24 09:02 | P.HPOB ---
History of Present Illness H&P Date: 06/24/17 Chief Complaint: Spontaneous rupture of membranes This is a 21-year-old female 2 para 1 at 37-6/7 weeks with an estimated date of confinement of 07/09/2017, who presents with complaints of spontaneous rupture of membranes with clear fluid noted at approximately 2 AM. She was complaining of irregular contractions. course has been uncomplicated. labs: GC/chlamydia-negative Rubella-immune Toxoplasma-negative HIV-nonreactive Hepatitis B surface antigen-negative RPR-nonreactive Random glucose-110 Hemoglobin-11 Blood type-A+ Antibody screen-negative One hour Glucola-113 Group B streptococcus-negative Obstetrical history: . History of 1 vaginal delivery at term with no complications. Gynecologic history: She does have a history of chlamydia treated 4-5 years ago. Review of Systems Constitutional: Denies chills, Denies fever Eyes: denies blurred vision, denies pain Ears, nose, mouth and throat: Denies headache, Denies sore throat Cardiovascular: Denies chest pain, Denies shortness of breath Respiratory: Denies cough Gastrointestinal: Reports abdominal pain (Irregular contractions) Genitourinary: Reports pelvic pain, Reports Musculoskeletal: Reports low back pain Integumentary: Denies pruritus, Denies rash Neurological: Denies numbness, Denies weakness Psychiatric: Denies anxiety, Denies depression Past Medical History Past Medical History: No Reported History Additional Past Medical History / Comment(s): ovarian cysts History of Any Multi-Drug Resistant Organisms: None Reported Past Surgical History: Tonsillectomy Past Anesthesia/Blood Transfusion Reactions: No Reported Reaction Past Psychological History: ADD/ADHD, Anxiety, Depression Smoking Status: Never smoker Past Alcohol Use History: None Reported Past Drug Use History: None Reported - Past Family History Mother Additional Family Medical History / Comment(s): depression Father Family Medical History: No Reported History Additional Family Medical History / Comment(s): bipolar Medications and Allergies Home Medications Medication Instructions Recorded Confirmed Type Pnv,Calcium 72/Iron/Folic Acid 1 tab PO DAILY 06/03/17 06/20/17 History [ Plus Tablet] Allergies Allergy/AdvReac Type Severity Reaction Status Date / Time No Known Allergies Allergy Verified 06/20/17 23:52 Exam Osteopathic Statement: *. No significant issues noted on an osteopathic structural exam other than those noted in the History and Physical/Consult. - Vital Signs Vital signs: Vital Signs Temp Pulse Resp BP Pulse Ox 06/24/17 02:49 96.8 F L 92 16 140/80 98 06/24/17 02:47 96.8 F L 92 16 140/80 98 Intake and Output 06/23/17 06/24/17 06/24/17 22:59 06:59 14:59 Other: # Voids 1 Weight 75.75 kg HEENT: Within normal limits Heart: Regular rate and rhythm Lungs: Clear to auscultation bilaterally Abdomen: Cervix: Currently is 5 cm/80%/-2 station with bag of water still palpated. Artificial rupture of membranes is noted and clear fluid is noted. She did have positive amnisure and she has been leaking clear fluid prior to arrival. heart tones: Reactive Contractions: Irregular Extremities: Negative edema Results Result Diagrams: 06/24/17 03:00 Abnormal Lab Results - Last 24 Hours (Table) 06/24/17 Range/Units 03:00 RBC 3.47 L (3.80-5.40) m/uL Hgb 11.0 L (11.4-16.0) gm/dL Hct 32.4 L (34.0-46.0) % Assessment and Plan (1) 37 weeks gestation of Current Visit: Yes Status: Acute Code(s): Z3A.37 - 37 WEEKS GESTATION OF SNOMED Code(s): 30036524 (2) Spontaneous rupture of membranes Current Visit: Yes Status: Acute Code(s): LOG8154 - SNOMED Code(s): 876944575 Plan: Proceed with oxytocin augmentation of labor. Epidural anesthesia if desired. Expectant management.
[2017-06-24] MEDS ORDERED: fentaNYL (PF) 50 MCG/ML 5 ML AMP ONE (09:06)
[2017-06-24] MEDS ORDERED: BUPIVACAINE (PF) 0.25% 30 ML VIAL ONE (09:06)
[2017-06-24] MEDS ORDERED: SODIUM CHLORIDE 0.9% 100 ML BAG ONE (09:06)
[2017-06-24] MEDS ORDERED: BUPIVACAINE (PF) 0.25% 25 ML, fentaNYL (PF) 200 MCG in SODIUM CHLORIDE 0.9% 71 ML EPIDURAL ONE (09:24)
[2017-06-24] MEDS ORDERED: diphenhydrAMINE 50 MG CAP PO PRN (11:40)
[2017-06-24] MEDS ORDERED: ZOLPIDEM 5 MG TAB PO PRN (11:40)
[2017-06-24] MEDS ORDERED: SIMETHICONE 80 MG CHEWABLE PO PRN (11:40)
[2017-06-24] MEDS ORDERED: LANOLIN CREAM 5 GM TUBE TOPICAL PRN (11:40)
[2017-06-24] MEDS ORDERED: BENZOCAINE/MENTHOL SPRAY 1 GM/SPRAY AEROSOL TOPICAL PRN (11:40)
[2017-06-24] MEDS ORDERED: diphenhydrAMINE 50 MG/ML 1 ML VIAL IVP PRN ×2 (11:40)
[2017-06-24] MEDS ORDERED: WITCH HAZEL 1 EACH MED..PAD TOPICAL PRN (11:40)
[2017-06-24] MEDS ORDERED: ACETAMINOPHEN TAB 325 MG TAB PO PRN (11:40)
[2017-06-24] MEDS ORDERED: diphenhydrAMINE 25 MG CAP PO PRN (11:40)
[2017-06-24] MEDS ORDERED: HYDROCORTISONE 2.5% RECTAL CREAM 30 GM TUBE RECTAL PRN (11:40)
--- NOTE | 2017-06-24 12:30 | P.PROBDLV ---
Vaginal Delivery Note - . Vaginal Delivery Note: The patient reached complete dilation after epidural anesthesia and oxytocin augmentation of labor. She pushed for a short while and then delivered the 's head across an intact perineum in a right occiput anterior lie. Nose and mouth were bulb suctioned at the perineum. Infant had a right nuchal hand that delivered with the posterior shoulder 1st and then the anterior shoulder and body delivered. Infant was placed on mother's abdomen and cord was clamped and cut. A viable female with scores of 9 at 1 minute and 9 ant 5 minutes and infant weight of 7 pounds 2.5 oz. was noted. Placenta delivered shortly thereafter, intact, with a 3 vessel cord. Uterus contracted fairly well after oxytocin was given and uterine massage was carried out. Bladder was also drained. No perineal lacerations were noted. Both mother and infant are in stable condition. Estimated blood loss was 200 cc.
[2017-06-24] MEDS: IBUPROFEN 600 MG TAB PO PRN ×2 (15:01→20:33)
[2017-06-24] MEDS: SENNOSIDES-DOCUSATE SODIUM 1 EACH TAB PO SCH (20:31)
[2017-06-25 07:41] LABS: Basophils % (A) 0 %; Eosinophils # (A) 0.2 k/uL (0-0.7); Eosinophils % (A) 2 %; HCT 26.5 % (34.0-46.0); Lymphocytes # (A) 2.2 k/uL (1.0-4.8); Lymphocytes % (A) 23 %; MCV 94.1 fL (80.0-100.0); Mean Platelet Volume 7.5; Monocytes # (A) 0.5 k/uL (0-1.0); Monocytes % (A) 5 %; Neutrophils # (A) 6.6 k/uL (1.3-7.7); Neutrophils % (A) 68 %; Platelet Count 184 k/uL (150-450); RBC 2.82 m/uL (3.80-5.40); RDW 12.7 % (11.5-15.5); WBC 9.7 k/uL (3.8-10.6)
[2017-06-25] MEDS: SENNOSIDES-DOCUSATE SODIUM 1 EACH TAB PO SCH (08:11)
--- NOTE | 2017-06-25 08:38 | P.DS ---
Providers Date of admission: 06/24/17 02:47 Expected date of discharge: 06/25/17 Attending physician: Nalini Valentine Primary care physician: Stated None - Discharge Diagnosis(es) (1) 37 weeks gestation of Current Visit: Yes Status: Acute (2) Spontaneous rupture of membranes Current Visit: Yes Status: Acute Hospital Course: This is a 21-year-old female 2 para 1 at 37-6/7 weeks who presented with spontaneous rupture of membranes. She underwent oxytocin augmentation of labor and delivered a viable female on 06/24/2017 with scores of 9 at 1 minute and 9 at 5 minutes and infant weight of 7 pounds 2.5 ounces. Her course is been uncomplicated. She is bottle feeding. Her cramping is controlled with ibuprofen and Tylenol. Vital signs are stable. Abdomen is soft with fundus firm and nontender. Extremities show negative Homans. Impression is status post vaginal delivery day #1. Plan is to discharge home today. Routine instructions are given. She is advised to follow up in the office in 6 weeks for check. She will be given a prescription for ibuprofen. She is advised to call the office if she has any further questions or concerns prior to her appointment time. Procedures: Oxytocin augmentation of labor Spontaneous vaginal delivery of a viable female on 06/24/2017 Patient Condition at Discharge: Stable Plan - Discharge Summary New Discharge Prescriptions: No Action Pnv,Calcium 72/Iron/Folic Acid [ Plus Tablet] 1 tab PO DAILY Discharge Medication List Pnv,Calcium 72/Iron/Folic Acid [ Plus Tablet] 1 tab PO DAILY 06/03/17 [ History] Follow up Appointment(s)/Referral(s): Nalini Valentine DO [Doctor of Osteopathic Medicine] - 6 Weeks Activity/Diet/Wound Care/Special Instructions: Instructions 1. Do not begin any exercise program for 3 weeks. 2. Do not resume sexual relations for 3 weeks or longer if uncomfortable. 3. You may take tub baths or showers at any time. 4. You may use tampons if desired after 3 weeks. 5. Keep the area of episiotomy (stitches) clean and dry. 6. If you are not nursing, wear a good fitting, supportive bra during the day and limit fluid intake for at least 1 week to prevent breast engorgement. 7. Call the office, [phone], within the next week to make appointment for your 6 week checkup if it has not already been made. 8. Report any of the following occurrences to the doctor promptly: a. Heavy, excessive bleeding b. Chills, fever c. Burning or frequency of urination d. Pain or redness and breasts if nursing e. Increasing pain or swelling in episiotomy (stitches). In addition to the above instructions, the following additional should be followed: 1. No heavy lifting or straining (exercising) until after 6 week checkup. 2. Keep abdominal incision clean and dry: You may wear a dressing if more comfortable. 3. Make office appointment for 10 days after going home or as instructed by her doctor. Discharge Disposition: HOME SELF-CARE
[2017-06-25] MEDS: IBUPROFEN 600 MG TAB PO PRN (08:44)
[2017-06-25 09:00] VITALS: BP 117/63; PULSE 77; RESP 16; TEMP 97.3
== END 2017-06-25 13:00 | disposition home or self-care (01) | DRG 775 ==
LOC: FBPOP 02:25 → 4FBP 02:47
PROVIDERS: ADMIT Obstetrics & Gynecology; ATTEND Obstetrics & Gynecology
PROC: 10E0XZZ Delivery of Products of Conception, External Approach (ICD-10-PCS; principal; 2017-06-24)
PROC: 3E0R3NZ Introduction of Analgesics, Hypnotics, Sedatives into Spinal Canal, Percutaneous Approach (ICD-10-PCS; principal; 2017-06-24)
DX: O42.92 Full-term premature rupture of membranes, unspecified as to length of time between rupture and onset of labor (principal); O69.81X0 Labor and delivery complicated by cord around neck, without compression, not applicable or unspecified; Z37.0 Single live birth; Z3A.37 37 weeks gestation of pregnancy
CPT/HCPCS: 59025; 84112; 85025; 88307; 99213

== ENCOUNTER → 2017-09-01 | Outpatient (CLI) | payer BC, OTHER ==
[2017-09-01 19:23] LABS: Basophils % (A) 0 %; Eosinophils # (A) 0.2 k/uL (0-0.7); Eosinophils % (A) 5 %; HCT 36.5 % (34.0-46.0); HGB 12.5 gm/dL (11.4-16.0); Lymphocytes # (A) 2.2 k/uL (1.0-4.8); Lymphocytes % (A) 40 %; MCH 29.6 pg (25.0-35.0); MCHC 34.3 g/dL (31.0-37.0); MCV 86.1 fL (80.0-100.0); Monocytes # (A) 0.3 k/uL (0-1.0); Monocytes % (A) 5 %; Neutrophils # (A) 2.6 k/uL (1.3-7.7); Neutrophils % (A) 48 %; Platelet Count 203 k/uL (150-450); RBC 4.24 m/uL (3.80-5.40); RDW 12.3 % (11.5-15.5); WBC 5.4 k/uL (3.8-10.6)
== END | disposition home or self-care (01) ==
LOC: LABMAIN 17:41
PROVIDERS: ATTEND Obstetrics & Gynecology
DX: Z01.812 Encounter for preprocedural laboratory examination (principal)
CPT/HCPCS: 36415; 85025

== ENCOUNTER 2017-09-08 06:10 | Day surgery (SDC) | payer BC, OTHER ==
[2017-09-03 11:49] VITALS: BMI 26.4
--- NOTE | 2017-09-07 19:49 | P.HPOB ---
History of Present Illness H&P Date: 09/07/17 Chief Complaint: Family planning This is a 21-year-old female 2 para 2 who presents for laparoscopic bilateral tubal ligation via fulguration for family planning. She is currently using condoms for control and wishes permanent sterilization. She has signed [facility] paperwork in the office. She is currently . Obstetrical history: . History of 2 vaginal deliveries. Gynecologic history: History of chlamydia treated several years ago. Social history: She is single. Review of Systems Constitutional: Denies chills, Denies fever Ears, nose, mouth and throat: Denies headache, Denies sore throat Cardiovascular: Denies chest pain, Denies shortness of breath Respiratory: Denies cough Gastrointestinal: Denies abdominal pain, Denies diarrhea, Denies nausea, Denies vomiting Genitourinary: Denies dysuria, Denies hematuria Musculoskeletal: Denies myalgias Integumentary: Denies pruritus, Denies rash Neurological: Denies numbness, Denies weakness Psychiatric: Denies anxiety, Denies depression Endocrine: Denies fatigue, Denies weight change Past Medical History Past Medical History: No Reported History Additional Past Medical History / Comment(s): ovarian cysts History of Any Multi-Drug Resistant Organisms: None Reported Past Surgical History: Tonsillectomy Past Anesthesia/Blood Transfusion Reactions: No Reported Reaction Past Psychological History: No Psychological Hx Reported Smoking Status: Never smoker Past Alcohol Use History: None Reported Past Drug Use History: None Reported - Past Family History Mother Additional Family Medical History / Comment(s): depression Father Family Medical History: No Reported History Additional Family Medical History / Comment(s): bipolar Medications and Allergies Home Medications Medication Instructions Recorded Confirmed Type Dextroamphetamine/Amphetamine 15 mg PO QAM 09/03/17 09/03/17 History [Adderall] Allergies Allergy/AdvReac Type Severity Reaction Status Date / Time No Known Allergies Allergy Verified 09/03/17 11:45 Exam Osteopathic Statement: *. No significant issues noted on an osteopathic structural exam other than those noted in the History and Physical/Consult. HEENT: Within normal limits Heart: Regular rate and rhythm Lungs: Clear to auscultation bilaterally Abdomen: Soft, nontender Pelvic exam: Uterus is small, anteverted, with no adnexal masses or tenderness palpated. Extremities: Negative Homans Assessment and Plan (1) Family planning Status: Acute Code(s): Z30.09 - ENCOUNTER FOR OTH GENERAL CNSL AND ADVICE ON CONTRACEPTION SNOMED Code(s): 722015847 Plan: Proceed with laparoscopic bilateral tubal ligation via fulguration. I have discussed the risks, benefits, and alternative therapies for the above- mentioned procedure and for both sedation/anesthesia as well as necessary blood products administration, if indicated, as they pertain to this patient. The patient has indicated her understanding and acceptance of the risks and procedures discussed.
[~2017-09-08 06:10] MED LIST: DEXAMETHASONE SOD PHOSPHATE 10 MG/ML 1 ML VIAL IV ONE; LACTATED RINGERS 1,000 ML IV SCH; LIDOCAINE 1% 20 ML VIAL (10MG/ML) FOR IV START INTRADERMA PRN; MIDAZOLAM 2 MG/2 ML VIAL IV PRN; ONDANSETRON 4 MG/2 ML VIAL IVP PRN; Pre Op ABX Message 1 EACH MISC MISCELLANE ONE; SCOPOLAMINE 1.5MG/72HR PATCH TRANSDERM ONE; fentaNYL (PF) 50 MCG/ML 2 ML AMP IV PRN
[2017-09-08] MEDS ORDERED: ROCURONIUM BROMIDE 10 MG/ML 10 ML VIAL IV ONE (07:30)
[2017-09-08] MEDS ORDERED: GLYCOPYRROLATE 0.2 MG/ML 2 ML VIAL ONE (07:30)
[2017-09-08] MEDS ORDERED: KETOROLAC 30 MG/ML 1 ML VIAL ONE (07:30)
[2017-09-08] MEDS ORDERED: MIDAZOLAM 2 MG/2 ML VIAL ONE (07:30)
[2017-09-08] MEDS ORDERED: NEOSTIGMINE 1 MG/ML 10 ML VIAL ONE (07:30)
[2017-09-08] MEDS ORDERED: fentaNYL (PF) 50 MCG/ML 2 ML AMP ONE (07:30)
[2017-09-08] MEDS ORDERED: PROPOFOL 10 MG/ML 20 ML VIAL IV ONE (07:30)
[2017-09-08] MEDS ORDERED: LIDOCAINE 1% INJ 10MG/ML (20 ML MDV) ONE (07:30)
[2017-09-08] MEDS ORDERED: SUCCINYLCHOLINE CHLORIDE 100 MG/5 ML SYR IV ONE (07:30)
[2017-09-08] MEDS ORDERED: BUPIVACAINE (PF) 0.25% 30 ML VIAL SQ ONE ×2 (07:58→08:03)
--- NOTE | 2017-09-08 08:07 | P.OP ---
Date of Procedure: 09/08/17 Preoperative Diagnosis: Family planning Postoperative Diagnosis: Same Procedure(s) Performed: Laparoscopic bilateral tubal ligation via fulguration Anesthesia: LYNN Surgeon: Nalini Valentine Estimated Blood Loss (ml): 10 Pathology: none sent Condition: stable Disposition: same day Indications for Procedure: This is a 21-year-old female 2 para 2 who presents for laparoscopic bilateral tubal ligation via fulguration for family planning. She is currently using condoms for control and wishes permanent sterilization. She has signed [facility] paperwork in the office. She is currently . Operative Findings: Uterus is small, anteverted, with no adnexal masses palpated. Upon laparoscopy , normal uterus tubes and ovaries are noted. Appendix is partially visualized and appears normal. Description of Procedure: The patient is taken to the operating room where she is placed in the dorsal lithotomy position. She is prepped and draped in the normal sterile fashion. Examination is performed under anesthesia. Uterus is found to be in a anteverted position. No adnexal masses were palpated. Next a bivalve speculum was placed in the patient's vagina. A single-tooth tenaculum was used to grasp the anterior lip of the cervix. The uterus was sounded to 6-1/2 cm. The kroner uterine manipulator was then inserted through the cervix and the balloon was inflated. The single-tooth tenaculum is removed speculum was removed gloves were changed and attention was turned to the abdomen. The infraumbilical fold was grasped in transverse fashion with 2 Allis clamps. A small transverse incision was made with a scalpel. A hemostat was used to carry the incision down to the underlying layer of fascia. A towel clip was placed above the umbilicus for retraction. An 11 mm disposable bladeless trocar was then inserted into the peritoneal cavity under direct visualization. Once inside, pneumoperitoneum was achieved with CO2 gas. The insert was removed and the camera was placed. Intraperitoneal placement was confirmed. No bleeding was noted. Next the patient was placed in Trendelenburg position. A small stab incision was made suprapubically and a 5 mm disposable bladeless trocar was inserted into the peritoneal cavity under direct visualization. Once inside pelvic contents were inspected. Next a bipolar Kleppinger instrument was placed through the inferior trocar and the midportion of each tube was brought away from other structures and completely fulgurated on approximate 2-3 cm segment of each tube. Excellent hemostasis was noted. A picture was taken. Pneumoperitoneum was released after the inferior trocar was removed under direct visualization. The upper trocar was then removed. The fascial incision was closed with 0 Vicryl suture in interrupted [id number] stitch. The skin incisions were then closed with 4-0 Vicryl suture in a subcuticular fashion. Incision sites were then injected with quarter percent Marcaine. Approximately 7 mL were used. Next the kroner uterine manipulator was removed. Minimal bleeding was noted. All sponge and needle counts are correct. The patient is then taken to recovery room in stable condition.
[2017-09-08 08:32] VITALS: TEMP 97.1
[2017-09-08] MEDS ORDERED: Acetaminophen-Codeine 300-30mg TAB PO ONE (10:02)
[2017-09-08 10:24] VITALS: BP 101/64; PULSE 59; RESP 16
== END 2017-09-08 10:36 | disposition home or self-care (01) ==
LOC: OR 06:10
PROVIDERS: ATTEND Obstetrics & Gynecology
DX: Z30.2 Encounter for sterilization (principal); Z79.899 Other long term (current) drug therapy; F17.210 Nicotine dependence, cigarettes, uncomplicated
CPT/HCPCS: 81025; 58670; J2250; J1100; J2710; J2405; J2001; J3010; J1885; J0330; J2704

== ENCOUNTER 2017-09-10 11:56 | Emergency (ER) | payer BC, OTHER ==
[2017-09-10] MEDS ORDERED: ORPHENADRINE 30 MG/ML 2 ML VIAL IVP STA (13:52)
[2017-09-10] MEDS ORDERED: ONDANSETRON 4 MG/2 ML VIAL IVP STA (13:52)
--- NOTE | 2017-09-10 13:56 | ED ---
Abdominal Pain HPI - General Chief Complaint: Abdominal Pain Stated Complaint: POST OP ABDOMINAL PAIN Time Seen by Provider: 09/10/17 13:34 Source: patient, RN notes reviewed, old records reviewed Mode of arrival: ambulatory Limitations: no limitations - History of Present Illness Initial Comments: 21-year-old female presents to the emergency department today chief complaint of increased vaginal bleeding. She reports that she had a tubal ligation procedure by Dr. Valentine 2 days ago. She states that she's been having a heavy bleeding, almost a pad an hour. Patient reports that she was told to come to emergency department if there is any the symptoms. She reports some lower abdominal pain associated with this. She states that her pain medication prescribed since the surgery has not been helping much. She reports some nausea. No fevers or chills. No changes in urination or bowel habits. - Related Data Home Medications Medication Instructions Recorded Confirmed Dextroamphetamine/Amphetamine 15 mg PO QAM 09/03/17 09/10/17 [Adderall] Previous Rx's Medication Instructions Recorded Acetaminophen-Codeine 300-30mg 1 tab PO Q4H PRN 3 Days #18 tablet 09/08/17 [Tylenol w/codeine #3] Ondansetron Odt [Zofran Odt] 4 mg PO Q8HR PRN #12 tab 09/10/17 Allergies Allergy/AdvReac Type Severity Reaction Status Date / Time No Known Allergies Allergy Verified 09/10/17 13:47 Review of Systems ROS Statement: Those systems with pertinent positive or pertinent negative responses have been documented in the HPI. ROS Other: All systems not noted in ROS Statement are negative. Past Medical History Past Medical History: No Reported History Additional Past Medical History / Comment(s): ovarian cysts History of Any Multi-Drug Resistant Organisms: None Reported Past Surgical History: Tonsillectomy, Tubal Ligation Past Anesthesia/Blood Transfusion Reactions: No Reported Reaction Past Psychological History: ADD/ADHD, Anxiety, Depression Smoking Status: Current every day smoker Past Alcohol Use History: None Reported Past Drug Use History: None Reported - Past Family History Mother Additional Family Medical History / Comment(s): depression Father Family Medical History: No Reported History Additional Family Medical History / Comment(s): bipolar General Exam - General Exam Comments Initial Comments: 21-year-old female. Alert and oriented. No acute distress. Limitations: no limitations General appearance: alert, in no apparent distress Head exam: Present: atraumatic, normocephalic, normal inspection Eye exam: Present: normal appearance, PERRL, EOMI. Absent: scleral icterus, conjunctival injection, periorbital swelling ENT exam: Present: normal exam, mucous membranes moist Neck exam: Present: normal inspection. Absent: tenderness, meningismus, lymphadenopathy Respiratory exam: Present: normal lung sounds bilaterally. Absent: respiratory distress, wheezes, rales, rhonchi, stridor Cardiovascular Exam: Present: regular rate, normal rhythm, normal heart sounds. Absent: systolic murmur, diastolic murmur, rubs, gallop, clicks GI/Abdominal exam: Present: soft, normal bowel sounds, other (Well-appearing suprapubic and umbilical surgical site. No erythema or drainage.). Absent: distended, tenderness, guarding, rebound, rigid External exam: Present: normal external exam Speculum exam: Present: vaginal bleeding. Absent: normal speculum exam, erythema, vaginal discharge, cervical discharge, foreign body, tissue, laceration By manual exam: Present: normal by manual exam. Absent: cervical motion tenderness, adnexal tenderness Extremities exam: Present: normal inspection, full ROM, normal capillary refill. Absent: tenderness, pedal edema, joint swelling, calf tenderness Back exam: Present: normal inspection Neurological exam: Present: alert, oriented X3, CN II-XII intact Psychiatric exam: Present: normal affect, normal mood Skin exam: Present: warm, dry, intact, normal color. Absent: rash Course Vital Signs 09/10/17 09/10/17 11:58 15:57 Temperature 98.1 F 98.3 F Pulse Rate 80 78 Respiratory 20 17 Rate Blood Pressure 118/60 118/74 O2 Sat by Pulse 99 99 Oximetry - Reevaluation(s) Reevaluation #1: 09/10/17 15:[address] Pimentel. Will manage the patient's pain. She'll be given nausea medicine. They stated that the bleeding is expected. She can follow-up with her outpatient appointment. Return parameters were discussed. Medical Decision Making - Medical Decision Making 21-year-old female presents return today she played increased vaginal bleeding continues after tube ligation. Show her incision sites appear well. She has some mild tenderness on exam. All her lab work was reviewed and normal. Normal hemoglobin. Pelvic exam did show moderate amount of bleeding, no severe clots. Cervix appeared normal. Patient this case discussed with Dr. Barber. Discussed case with patient's surgeon Dr. Valentine. She states it is normal to have this type of bleeding. She can follow-up with her outpatient appointment in 1 week. I discussed with patient will write her for nausea medicine continuing her Tylenol 3's that she is starting prescribed. Patient will be following up with her. Discussed return parameters. All questions answered. Patient feels better and will be discharged home. - Lab Data Result diagrams: 09/10/17 13:55 09/10/17 13:55 Lab Results 09/10/17 09/10/17 09/10/17 Range/Units 13:55 13:55 13:55 WBC 6.5 (3.8-10.6) k/uL RBC 4.28 (3.80-5.40) m/uL Hgb 12.7 (11.4-16.0) gm/dL Hct 37.6 (34.0-46.0) % MCV 87.9 (80.0-100.0) fL MCH 29.7 (25.0-35.0) pg MCHC 33.8 (31.0-37.0) g/dL RDW 12.7 (11.5-15.5) % Plt Count 200 (150-450) k/uL Neutrophils % 54 % Lymphocytes % 35 % Monocytes % 6 % Eosinophils % 4 % Basophils % 0 % Neutrophils # 3.5 (1.3-7.7) k/uL Lymphocytes # 2.3 (1.0-4.8) k/uL Monocytes # 0.4 (0-1.0) k/uL Eosinophils # 0.2 (0-0.7) k/uL Basophils # 0.0 (0-0.2) k/uL Sodium 142 (137-145) mmol/L Potassium 3.9 (3.5-5.1) mmol/L Chloride 106 (98-107) mmol/L Carbon Dioxide 26 (22-30) mmol/L Anion Gap 10 mmol/L BUN 12 (7-17) mg/dL Creatinine 0.55 (0.52-1.04) mg/dL Est GFR (CKD-EPI)AfAm >90 (>60 ml/min/1.73 sqM) Est GFR (CKD-EPI)NonAf >90 (>60 ml/min/1.73 sqM) Glucose 72 L (74-99) mg/dL Calcium 9.4 (8.4-10.2) mg/dL Urine Color Yellow Urine Appearance Clear (Clear) Urine pH 6.0 (5.0-8.0) Ur Specific [place] 1.021 (1.001-1.035) Urine Protein Trace H (Negative) Urine Glucose (UA) Negative (Negative) Urine Ketones Negative (Negative) Urine Blood Large H (Negative) Urine Nitrite Negative (Negative) Urine Bilirubin Negative (Negative) Urine Urobilinogen 2.0 (<2.0) mg/dL Ur Leukocyte Esterase Negative (Negative) Urine RBC 3 (0-5) /hpf Urine WBC 3 (0-5) /hpf Ur Squamous Epith Cells 2 (0-4) /hpf Urine Mucus Rare H (None) /hpf Disposition Clinical Impression: Vaginal bleeding Disposition: HOME SELF-CARE Condition: Good Instructions: Dysfunctional Uterine Bleeding (ED) Additional Instructions: Patient is follow-up with PCP. Return to emergency department if any alarming signs or symptoms occur. Follow-up with your schedule outpatient appointment with Dr. Valentine. Expect bleeding. Return if there is any worsening signs or symptoms. Prescriptions: Ondansetron Odt [Zofran Odt] 4 mg PO Q8HR PRN #12 tab PRN Reason: Nausea Is patient prescribed a controlled substance at d/c from ED?: No If prescribed controlled substance>3 days was MAPS reviewed?: No When asked, does pt state using other controlled substances?: No Referrals: Yvette Lin DO [Primary Care Provider] - 1-2 days Time of Disposition: 15:25
[2017-09-10] MEDS ORDERED: SODIUM CHLORIDE 0.9% 1,000 ML IV STA (14:01)
[2017-09-10] MEDS ORDERED: SODIUM CHLORIDE 0.9% 500 ML IV STA (14:01)
[2017-09-10 14:15] LABS: Basophils % (A) 0 %; Eosinophils # (A) 0.2 k/uL (0-0.7); Eosinophils % (A) 4 %; HCT 37.6 % (34.0-46.0); HGB 12.7 gm/dL (11.4-16.0); Lymphocytes # (A) 2.3 k/uL (1.0-4.8); Lymphocytes % (A) 35 %; MCH 29.7 pg (25.0-35.0); MCHC 33.8 g/dL (31.0-37.0); MCV 87.9 fL (80.0-100.0); Mean Platelet Volume 6.6; Monocytes # (A) 0.4 k/uL (0-1.0); Monocytes % (A) 6 %; Neutrophils # (A) 3.5 k/uL (1.3-7.7); Neutrophils % (A) 54 %; Platelet Count 200 k/uL (150-450); RBC 4.28 m/uL (3.80-5.40); RDW 12.7 % (11.5-15.5); WBC 6.5 k/uL (3.8-10.6)
[2017-09-10 14:18] LABS: Appearance,Urine Clear (Clear); Bilirubin,Urine Negative (Negative); Blood,Urine Large (Negative); Color,Urine Yellow; Glucose,Urine (UA) Negative (Negative); Ketones,Urine Negative (Negative); Leukocyte Esterase,Urine Negative (Negative); Mucus,Urine Rare /hpf; Nitrite,Urine Negative (Negative); Protein,Urine Trace (Negative); RBC,Urine 3 /hpf (0-5); Specific Gravity,Urine 1.021 (1.001-1.035); Squamous Epithelial Cell,Urine 2 /hpf (0-4); WBC,Urine 3 /hpf (0-5)
[2017-09-10 14:29] LABS: Anion Gap 10 mmol/L; Blood Urea Nitrogen 12 mg/dL (7-17); Calcium 9.4 mg/dL (8.4-10.2); Carbon Dioxide 26 mmol/L (22-30); Chloride 106 mmol/L (98-107); Glucose 72 mg/dL (74-99); Potassium 3.9 mmol/L (3.5-5.1); Sodium 142 mmol/L (137-145)
[2017-09-10] MEDS ORDERED: MORPHINE SULFATE 4 MG/ML SYRINGE IVP ONE (15:07)
[2017-09-10] MEDS ORDERED: KETOROLAC 30 MG/ML 1 ML VIAL IVP STA (15:20)
[2017-09-10 15:58] VITALS: BP 118/74; PULSE 78; RESP 17; TEMP 98.3
== END 2017-09-10 15:57 | disposition home or self-care (01) ==
LOC: EC 11:56
DX: N93.9 Abnormal uterine and vaginal bleeding, unspecified (principal); R10.30 Lower abdominal pain, unspecified; F90.9 Attention-deficit hyperactivity disorder, unspecified type; F32.9 Major depressive disorder, single episode, unspecified; F41.9 Anxiety disorder, unspecified; F17.200 Nicotine dependence, unspecified, uncomplicated; Z79.899 Other long term (current) drug therapy
CPT/HCPCS: 36415; 80048; 85025; 81001; 99284; 96374; 96375 ×3; 96361 ×2; J2270; J2360; J2405; J1885

== ENCOUNTER 2018-10-17 21:50 | Emergency (ER) | payer BC, OTHER ==
[2018-10-17 22:25] VITALS: TEMP 98.2
[2018-10-17] MEDS ORDERED: SODIUM CHLORIDE 0.9% 1,000 ML IV ONE (23:26)
[2018-10-17] MEDS ORDERED: KETOROLAC 30 MG/ML 1 ML VIAL IVP STA (23:26)
[2018-10-17] MEDS ORDERED: ONDANSETRON 4 MG/2 ML VIAL IVP STA (23:26)
--- NOTE | 2018-10-17 23:29 | ED ---
Abdominal Pain HPI - General Chief Complaint: Abdominal Pain Stated Complaint: Abd pain Time Seen by Provider: 10/17/18 23:20 Source: patient, family Mode of arrival: ambulatory Limitations: no limitations - History of Present Illness Initial Comments: 22-year-old female presenting with intermittent right lower quadrant abdominal pain which is not alleviated or exacerbated by anything is been accompanied by constipation. She states she's having intermittent hematuria. She normally has bowel movements every 2 days. She has tried multiple stool softeners without relief. She states that she had her tubes tied she has had multiple episodes of ovarian cysts they normally not accompanied by constipation symptoms. She denies abdominal surgeries, inflammatory bowel disease history, F/C, flank pain, or history of similar symptoms. - Related Data Home Medications Medication Instructions Recorded Confirmed Dextroamphetamine/Amphetamine 15 mg PO QAM 09/03/17 09/10/17 [Adderall] Previous Rx's Medication Instructions Recorded Acetaminophen-Codeine 300-30mg 1 tab PO Q4H PRN 3 Days #18 tablet 09/08/17 [Tylenol w/codeine #3] Ondansetron Odt [Zofran Odt] 4 mg PO Q8HR PRN #12 tab 09/10/17 Cephalexin [Keflex] 500 mg PO Q12HR 7 Days #14 cap 10/18/18 Ibuprofen [Motrin] 600 mg PO Q6HR PRN #30 tab 10/18/18 Lactulose [Cephulac] 10 gm PO BID #1 bottle 10/18/18 Magnesium Citrate [Citrate of 296 ml PO ONCE #296 ml 10/18/18 Magnesia] Ondansetron Odt [Zofran Odt] 4 mg PO Q12HR PRN #20 tab 10/18/18 Allergies Allergy/AdvReac Type Severity Reaction Status Date / Time No Known Allergies Allergy Verified 09/10/17 13:47 Review of Systems ROS Statement: Those systems with pertinent positive or pertinent negative responses have been documented in the HPI. Review of Systems Constitutional: Denies fever, chills Eyes: Denies change in vision, Denies pain Ears, nose, mouth, throat: Denies headaches, Denies sore throat Cardiovascular: Denies chest pain. Denies palpitations Respiratory: Denies shortness of breath, Denies cough Gastrointestinal: Positive abdominal pain. Positive nausea, denies vomiting, diarrhea. Genitourinary: Positive hematuria, Denies infections Musculoskeletal: Denies pain, Denies swelling Integumentary: Denies rash Neurological: Denies headache, focal weakness, focal numbness Psychiatric: Denies anxiety, Denies depression Hematologic/Lymphatic: Denies easy bleeding or bruising ROS Other: All systems not noted in ROS Statement are negative. Past Medical History Past Medical History: No Reported History Additional Past Medical History / Comment(s): ovarian cysts History of Any Multi-Drug Resistant Organisms: None Reported Past Surgical History: Tonsillectomy, Tubal Ligation Past Anesthesia/Blood Transfusion Reactions: No Reported Reaction Past Psychological History: ADD/ADHD, Anxiety, Depression Smoking Status: Current every day smoker Past Alcohol Use History: None Reported Past Drug Use History: None Reported - Past Family History Mother Additional Family Medical History / Comment(s): depression Father Family Medical History: No Reported History Additional Family Medical History / Comment(s): bipolar General Exam - General Exam Comments Initial Comments: General: Awake, alert, No acute Distress HENT: Normocephalic. Atraumatic Eyes: PERRL. EOMI. No scleral icterus. No injected conjunctiva Neck: Full ROM Chest/Lungs: Clear to auscultation bilaterally. No wheezing, rhonchi, or rales Cardiac: Regular rate, rhythm. No murmurs or rubs Abdomen/GI: Soft,nondistended. Her quadrant tenderness No rebound, guarding, or rigidity. Musculoskeletal: Full ROM Skin: Warm, dry, intact Neurologic: A/Ox3, no weakness, no sensory deficit, no abnormal gait, no coordination deficit Limitations: no limitations Course Vital Signs 10/17/18 10/18/18 22:20 00:34 Temperature 98.2 F Pulse Rate 100 76 Respiratory 20 16 Rate Blood Pressure 119/84 109/60 O2 Sat by Pulse 100 97 Oximetry Medical Decision Making - Medical Decision Making 22-year-old female presenting with abdominal pain and dysuria. Initial exam the patient is awake, alert, no acute distress. VSS. Patient's abdomen is non- peritoneal. Laboratory workup is positive for UTI with cystitis. Patient has no flank pain or pain to suggest a kidney stone or pyelonephritis. Her CT abdomen and pelvis with contrast was negative for acute process. She had no leukocytosis and her hemoglobin was stable. Patient was given a dose of Rocephin in the emergency department for her cystitis and was given a prescription for Keflex. For her constipation she declined an enema in the emergency department was given prescriptions for lactulose and magnesium citra te. She was also given GI follow-up. No further emergent workup indicated. The patient was given return to ED instructions. She understands to return to the emergency department should she develop fever on the antibiotics, is unable to stop vomiting, or has worsening abdominal pain. They were instructed to follow up with their primary care provider. Stable for discharge at this time. - Lab Data Result diagrams: 10/17/18 23:40 10/17/18 23:40 Lab Results 10/17/18 10/17/18 10/17/18 Range/Units 23:40 23:40 23:40 WBC 6.2 (3.8-10.6) k/uL RBC 4.29 (3.80-5.40) m/uL Hgb 13.0 (11.4-16.0) gm/dL Hct 38.4 (34.0-46.0) % MCV 89.4 (80.0-100.0) fL MCH 30.3 (25.0-35.0) pg MCHC 33.8 (31.0-37.0) g/dL RDW 13.0 (11.5-15.5) % Plt Count 160 (150-450) k/uL Neutrophils % 49 % Lymphocytes % 40 % Monocytes % 5 % Eosinophils % 4 % Basophils % 0 % Neutrophils # 3.0 (1.3-7.7) k/uL Lymphocytes # 2.5 (1.0-4.8) k/uL Monocytes # 0.3 (0-1.0) k/uL Eosinophils # 0.3 (0-0.7) k/uL Basophils # 0.0 (0-0.2) k/uL Sodium 141 (137-145) mmol/L Potassium 3.0 L (3.5-5.1) mmol/L Chloride 104 (98-107) mmol/L Carbon Dioxide 29 (22-30) mmol/L Anion Gap 8 mmol/L BUN 11 (7-17) mg/dL Creatinine 0.54 (0.52-1.04) mg/dL Est GFR (CKD-EPI)AfAm >90 (>60 ml/min/1.73 sqM) Est GFR (CKD-EPI)NonAf >90 (>60 ml/min/1.73 sqM) Glucose 95 (74-99) mg/dL Calcium 9.4 (8.4-10.2) mg/dL HCG, Qual Not Detected Urine Color Dark Red Urine Appearance Turbid H (Clear) Urine pH 6.5 (5.0-8.0) Ur Specific [place] 1.020 (1.001-1.035) Urine Protein 2+ H (Negative) Urine Glucose (UA) Negative (Negative) Urine Ketones Negative (Negative) Urine Blood Large H (Negative) Urine Nitrite Negative (Negative) Urine Bilirubin Negative (Negative) Urine Urobilinogen <2.0 (<2.0) mg/dL Ur Leukocyte Esterase Large H (Negative) Urine RBC 181 H (0-5) /hpf Urine WBC >182 H (0-5) /hpf Ur Squamous Epith Cells 47 H (0-4) /hpf Urine Mucus Few H (None) /hpf Disposition Clinical Impression: Cystitis, Constipation Disposition: HOME SELF-CARE Condition: Good Instructions (If sedation given, give patient instructions): Constipation (DC), Urinary Tract Infection in Women (ED), High Fiber Diet (ED) Additional Instructions: Return to ED if you develop a fever while on antibiotics, if you are unable to stop vomiting, or if you develop severe abdominal pain Prescriptions: Lactulose [Cephulac] 10 gm PO BID #1 bottle Magnesium Citrate [Citrate of Magnesia] 296 ml PO ONCE #296 ml Cephalexin [Keflex] 500 mg PO Q12HR 7 Days #14 cap Ibuprofen [Motrin] 600 mg PO Q6HR PRN #30 tab PRN Reason: Pain Ondansetron Odt [Zofran Odt] 4 mg PO Q12HR PRN #20 tab PRN Reason: Nausea Is patient prescribed a controlled substance at d/c from ED?: No Referrals: Yvette Lin DO [Primary Care Provider] - 1-2 days Andi Wise MD [STAFF PHYSICIAN] - 1-2 days
[2018-10-17 23:57] LABS: Basophils % (A) 0 %; Eosinophils # (A) 0.3 k/uL (0-0.7); Eosinophils % (A) 4 %; HCT 38.4 % (34.0-46.0); Lymphocytes # (A) 2.5 k/uL (1.0-4.8); Lymphocytes % (A) 40 %; MCH 30.3 pg (25.0-35.0); MCHC 33.8 g/dL (31.0-37.0); MCV 89.4 fL (80.0-100.0); Mean Platelet Volume 7.6; Monocytes # (A) 0.3 k/uL (0-1.0); Monocytes % (A) 5 %; Neutrophils % (A) 49 %; Platelet Count 160 k/uL (150-450); RBC 4.29 m/uL (3.80-5.40); WBC 6.2 k/uL (3.8-10.6)
[2018-10-18] LABS: Appearance,Urine Turbid (Clear); Bilirubin,Urine Negative (Negative); Blood,Urine Large (Negative); Color,Urine Dark Red; Glucose,Urine (UA) Negative (Negative); Ketones,Urine Negative (Negative); Leukocyte Esterase,Urine Large (Negative); Mucus,Urine Few /hpf; Nitrite,Urine Negative (Negative); PH, Urine 6.5 (5.0-8.0); Protein,Urine 2+ (Negative); RBC,Urine 181 /hpf (0-5); Squamous Epithelial Cell,Urine 47 /hpf (0-4); Urobilinogen,Urine <2.0 mg/dL (<2.0)
[2018-10-18 00:05] LABS: HCG,Qualitative Serum Not Detected
[2018-10-18 00:07] LABS: African American GFR (CKD) >90 (>60 ml/min/1.73 sqM); Anion Gap 8 mmol/L; Blood Urea Nitrogen 11 mg/dL (7-17); Calcium 9.4 mg/dL (8.4-10.2); Carbon Dioxide 29 mmol/L (22-30); Chloride 104 mmol/L (98-107); Glucose 95 mg/dL (74-99); Sodium 141 mmol/L (137-145)
[2018-10-18] MEDS ORDERED: cefTRIAXone IN SWFI 1,000 MG/10 ML SYRINGE IVP STA (00:23)
[2018-10-18 00:37] VITALS: BP 109/60; PULSE 76; RESP 16
--- NOTE | 2018-10-18 01:09 | CT ---
EXAM: CT Abdomen and Pelvis With Intravenous Contrast CLINICAL HISTORY: RLQ pain. TECHNIQUE: Axial computed tomography images of the abdomen and pelvis with intravenous contrast. Coronal and sagittal reformatted images were created and reviewed. Delayed images were obtained. CTDI is 11.37 mGy and DLP is 489.1 mGy-cm. This CT exam was performed using one or more of the following dose reduction techniques: automated exposure control, adjustment of the mA and/or kV according to patient size, and/or use of iterative reconstruction technique. COMPARISON: CT dated 09/24/2016. FINDINGS: Lung bases: Unremarkable. No mass. No consolidation. ABDOMEN: Liver: Small area of hypoattenuation in the liver adjacent to falciform ligament suggestive of focal fatty infiltration, stable. Liver otherwise unremarkable. No mass. Gallbladder and bile ducts: Contracted gallbladder. Upper normal caliber of common bile duct measuring 6 mm. No significant biliary dilation. Pancreas: Pancreatic neck cyst measuring 7 mm, stable compared to CT dated 09/24/2016. Spleen: Unremarkable. No splenomegaly. Adrenals: Unremarkable. No mass. Kidneys and ureters: Unremarkable. No hydronephrosis or ureteral calculus. No solid mass. Stomach and bowel: No bowel obstruction. No significant bowel wall thickening. PELVIS: Appendix: No evidence of acute appendicitis. Bladder: Unremarkable. No mass or wall thickening. Reproductive: Dominant follicle in left ovary measuring 1.6 cm. Pelvic structures otherwise grossly unremarkable on CT. ABDOMEN and PELVIS: Intraperitoneal space: Unremarkable. No free air. No significant fluid collection or ascites. Bones/joints: No acute fracture. No dislocation. Soft tissues: Unremarkable. Vasculature: Unremarkable. No abdominal aortic aneurysm. Lymph nodes: Unremarkable. No enlarged lymph nodes. IMPRESSION: 1. No definite acute inflammatory or obstructive process in the abdomen or pelvis to account for symptoms. Specifically, no evidence of acute appendicitis. 2. Contracted gallbladder. Upper normal caliber of common bile duct measuring 6 mm. No significant biliary dilation. 3. Pancreatic neck cyst measuring 7 mm, stable compared to CT dated 09/24/2016. 4. Dominant follicle in left ovary measuring 1.6 cm.
== END 2018-10-18 01:37 | disposition home or self-care (01) ==
LOC: EC 21:50
DX: K59.00 Constipation, unspecified (principal); N30.91 Cystitis, unspecified with hematuria; F90.9 Attention-deficit hyperactivity disorder, unspecified type; F32.9 Major depressive disorder, single episode, unspecified; F41.9 Anxiety disorder, unspecified; F17.200 Nicotine dependence, unspecified, uncomplicated; Z79.899 Other long term (current) drug therapy
CPT/HCPCS: 36415; 80048; 85025; 81001; 84703; 87086; 74177; 99284; 96374; 96375 ×2; 96361; J2405; J0696; J1885; Q9967

== ENCOUNTER 2018-12-28 12:04 | Emergency (ER) | payer BC, OTHER ==
[2018-12-28 12:28] VITALS: RESP 18
--- NOTE | 2018-12-28 13:03 | XR ---
EXAMINATION TYPE: XR ribs RT w pa chest xray DATE OF EXAM: 12/28/2018 CLINICAL HISTORY: Right rib pain, cough, and congestion TECHNIQUE: Single frontal view of the chest is obtained. Frontal and oblique views of the right ribs were also obtained. COMPARISON: None FINDINGS: There is no focal air space opacity, pleural effusion, or pneumothorax seen. The cardiac silhouette size is within normal limits. No displaced rib fracture is seen. IMPRESSION: No acute cardiopulmonary process. No acute displaced right rib fracture nor callused hea led rib fracture deformity.
--- NOTE | 2018-12-28 13:38 | ED ---
URI HPI - General Chief Complaint: Upper Respiratory Infection Stated Complaint: cough, rib pain Time Seen by Provider: 12/28/18 12:30 Source: patient Mode of arrival: ambulatory Limitations: no limitations - History of Present Illness Initial Comments: 23-year-old female presenting today for chief complaint of pain in the right- sided rib with inspiration. Patient states she has had a slight cough for the past week. She states that she now has a pain in the right side of her rib. She states increases with respirations. Patient denies fevers sore throat leg swelling history of DVT or pulmonary embolism, clotting disorders, recent surgeries recent immobilization, history of cancer. Patient describes the pain as sharp in nature without radiation. Patient denies pain at rest. She states it does increase when she lifts her child. Remaining ROS (-). Upon arrival patient appears well there is no sign of distress, denies SOB but states it hurt when she breaths in that one area. - Related Data Home Medications Medication Instructions Recorded Confirmed Dextroamphetamine/Amphetamine 20 mg PO QAM 12/28/18 12/28/18 [Adderall Xr] Dextroamphetamine/Amphetamine 10 mg PO DAILY@1200 12/28/18 12/28/18 [Adderall] traMADol HCL [Ultram] 50 mg PO BID PRN 12/28/18 12/28/18 Allergies Allergy/AdvReac Type Severity Reaction Status Date / Time No Known Allergies Allergy Verified 12/28/18 14:54 Review of Systems ROS Statement: Those systems with pertinent positive or pertinent negative responses have been documented in the HPI. ROS Other: All systems not noted in ROS Statement are negative. Past Medical History Past Medical History: No Reported History Additional Past Medical History / Comment(s): ovarian cysts History of Any Multi-Drug Resistant Organisms: None Reported Past Surgical History: Tonsillectomy, Tubal Ligation Past Anesthesia/Blood Transfusion Reactions: No Reported Reaction Past Psychological History: ADD/ADHD, Anxiety, Depression Smoking Status: Current every day smoker Past Alcohol Use History: None Reported Past Drug Use History: None Reported - Past Family History Mother Additional Family Medical History / Comment(s): depression Father Family Medical History: No Reported History Additional Family Medical History / Comment(s): bipolar General Exam - General Exam Comments Initial Comments: General: The patient is awake and alert, in no distress, and does not appear acutely ill. Eye: Pupils are equal, round and reactive to light, extra-ocular movements are intact. No nystagmus. There is normal conjunctiva bilaterally. No signs of icterus. Ears, nose, mouth and throat: There are moist mucous membranes and no oral lesions. Neck: The neck is supple, there is no tenderness or JVD. Cardiovascular: There is a regular rate and rhythm. No murmur, rub or gallop is appreciated. Respiratory: Lungs are clear to auscultation, respirations are non-labored, breath sounds are equal. No wheezes, stridor, rales, or rhonchi. Gastrointestinal: Soft, non-distended, non-tender abdomen without masses or organomegaly noted. There is no rebound or guarding present. Musculoskeletal: Normal ROM, no tenderness. Strength 5/5. Sensation intact. Pulses equal bilaterally 2+. Neurological: A&O x 3. CN II-XII intact grossly, There are no obvious motor or sensory deficits. Coordination appears grossly intact. Speech is normal. Skin: Skin is warm and dry and no rashes or lesions are noted. (-) homans. No L E edema/swelling. Psychiatric: Cooperative, appropriate mood & affect, normal judgment. Limitations: no limitations Course Vital Signs 12/28/18 12/28/18 12/28/18 12:24 13:27 15:23 Temperature 99.0 F 98.2 F Pulse Rate 110 H 81 Respiratory 18 18 18 Rate Blood Pressure 113/74 113/72 O2 Sat by Pulse 99 100 Oximetry Medical Decision Making - Medical Decision Making 23-year-old female presenting today for chief complaint of pain in the right side of the chest. Patient has history of cough for the past week. No hemopty sis. Patient is tachycardic upon arrival. Repeat within normal limits. Patient denies diffuse chest pain. She states she is not really short of breath more so pain with inspiration in one particular area that does increase when she lifts her child. Patient denies fever. She appears well nontoxic. Chest x-ray revealed no acute abnormalities no focal consolidations and lungs are clear. No clinical manifestations of deep venous thrombosis. D-dimer was elevated. CT angiography was made after shortest decision making. No acute pulmonary embolism. At this time given patient's pain is only with inspiration and with specific movements, she has had a history of cough prior to onset of symptoms this is most likely musculoskeletal. Patient is encouraged to take NSAIDs. Patient is to follow-up with primary care provider. Return for were discussed and patient was discharged appearing well - Lab Data Result diagrams: 12/28/18 12:35 Lab Results 12/28/18 12/28/18 Range/Units 12:35 12:35 D-Dimer 0.82 H (<0.60) mg/L FEU Sodium 138 (137-145) mmol/L Potassium 4.3 (3.5-5.1) mmol/L Chloride 103 (98-107) mmol/L Carbon Dioxide 26 (22-30) mmol/L Anion Gap 9 mmol/L BUN 12 (7-17) mg/dL Creatinine 0.52 (0.52-1.04) mg/dL Est GFR (CKD-EPI)AfAm >90 (>60 ml/min/1.73 sqM) Est GFR (CKD-EPI)NonAf >90 (>60 ml/min/1.73 sqM) Glucose 94 (74-99) mg/dL Calcium 9.5 (8.4-10.2) mg/dL Total Bilirubin 0.6 (0.2-1.3) mg/dL AST 23 (14-36) U/L ALT 20 (9-52) U/L Alkaline Phosphatase 65 (38-126) U/L Total Protein 7.6 (6.3-8.2) g/dL Albumin 4.7 (3.5-5.0) g/dL Disposition Clinical Impression: Rib pain, Cough Disposition: HOME SELF-CARE Condition: Good Instructions (If sedation given, give patient instructions): Upper Respiratory Infection (ED) Additional Instructions: Please use medication as discussed. Please follow-up with family doctor in the next 2 days. Please return to emergency room if the symptoms increase or worsen or for any other concerns. Is patient prescribed a controlled substance at d/c from ED?: No Referrals: Yvette Lin DO [Primary Care Provider] - 1-2 days Time of Disposition: 15:34
[2018-12-28 15:26] VITALS: BP 113/72; PULSE 81; TEMP 98.2
--- NOTE | 2018-12-28 15:26 | CT ---
EXAMINATION TYPE: CT chest angio for PE DATE OF EXAM: 12/28/2018 COMPARISON: None HISTORY: 23-year-old female Right sided rib pain, cough, shortness of breath. TECHNIQUE: Contiguous axial scanning of the chest performed with IV Contrast, patient injected with 1 00 mL of Isovue 300. Coronal/sagittal MIP reconstructions performed. CT DLP: 219.5 mGycm Automated exposure control for dose reduction was used. FINDINGS: Heart normal size without pericardial effusion. Aorta normal caliber with conventional branching anatomy. Satisfactory opacification of the pulmonary arterial system. Breathing motion on the left without con vincing evidence for pulmonary embolus. No thoracic lymphadenopathy. No consolidation or pleural effusion. Visualized upper abdomen shows no gross abnormality. Bones: No osseous destructive process. Endplate Schmorl's node superiorly of T12 and some degenerativ e disc disease at T12-L1. IMPRESSION: NO EVIDENCE FOR PULMONARY EMBOLUS OR ACUTE PULMONARY PROCESS.
[2018-12-28 15:37] LABS: ALT 20 U/L (9-52); AST 23 U/L (14-36); African American GFR (CKD) >90 (>60 ml/min/1.73 sqM); Albumin 4.7 g/dL (3.5-5.0); Alkaline Phosphatase 65 U/L (38-126); Anion Gap 9 mmol/L; Blood Urea Nitrogen 12 mg/dL (7-17); Calcium 9.5 mg/dL (8.4-10.2); Carbon Dioxide 26 mmol/L (22-30); Chloride 103 mmol/L (98-107); Glucose 94 mg/dL (74-99); Potassium 4.3 mmol/L (3.5-5.1); Sodium 138 mmol/L (137-145); Total Bilirubin 0.6 mg/dL (0.2-1.3); Total Protein 7.6 g/dL (6.3-8.2)
== END 2018-12-28 15:53 | disposition home or self-care (01) ==
LOC: EC 12:04
DX: R05 Cough (principal); R07.81 Pleurodynia; R00.0 Tachycardia, unspecified; F90.9 Attention-deficit hyperactivity disorder, unspecified type; F17.200 Nicotine dependence, unspecified, uncomplicated; Z79.899 Other long term (current) drug therapy
CPT/HCPCS: 36415; 85379; 80053; 71101; 71275; 99284; Q9967

== ENCOUNTER 2019-02-25 01:28 | Emergency (ER) | payer BC, OTHER ==
[2019-02-25] MEDS ORDERED: KETOROLAC 30 MG/ML 1 ML VIAL IVP STA (01:49)
[2019-02-25] MEDS ORDERED: SODIUM CHLORIDE 0.9% 1,000 ML IV ONE (01:49)
[2019-02-25] MEDS ORDERED: ONDANSETRON 4 MG/2 ML VIAL IVP STA (01:51)
--- NOTE | 2019-02-25 01:53 | ED ---
General Adult HPI - General Chief complaint: Arrhythmia/Palpitations Stated complaint: Diff Breathing, Medication issue Time Seen by Provider: 02/25/19 01:40 Source: patient Mode of arrival: ambulatory Limitations: no limitations - History of Present Illness Initial comments: 23-year-old female patient presents to the emergency department today for evalu ation of possible medication reaction. Patient states that she took Cymbalta today for the first time. States about an hour after taking it she started to feel odd. Patient states that she started to have a racing heart, short of breath, and nauseated. States that she also started to feel "out of it" when she arrived here. Patient states she has a headache. She denies any blurred or double vision. States that she has "scoliosis and her doctors attempting medications for treatment of her pain. States she is also tried gabapentin and BuSpar this week and had reactions to those as well. She denies any throat or tongue swelling. Denies rash or itching. Patient denies any recent rash, fever, chills, chest pain, abdominal pain, diarrhea, constipation, numbness, tingling, dizziness, weakness, hematuria, dysuria, urinary urgency, urinary frequency, or any other complaints. - Related Data Home Medications Medication Instructions Recorded Confirmed Dextroamphetamine/Amphetamine 20 mg PO QAM 12/28/18 02/25/19 [Adderall Xr] Dextroamphetamine/Amphetamine 10 mg PO DAILY@1200 12/28/18 02/25/19 [Adderall] Celecoxib [CeleBREX] 200 mg PO DAILY 02/25/19 02/25/19 DULoxetine HCL [Cymbalta] 30 mg PO DAILY 02/25/19 02/25/19 Meloxicam [Mobic] 7.5 mg PO DAILY 02/25/19 02/25/19 busPIRone HCL 10 mg PO BID 02/25/19 02/25/19 Allergies Allergy/AdvReac Type Severity Reaction Status Date / Time No Known Allergies Allergy Verified 12/28/18 14:54 Review of Systems ROS Statement: Those systems with pertinent positive or pertinent negative responses have been documented in the HPI. ROS Other: All systems not noted in ROS Statement are negative. Past Medical History Past Medical History: No Reported History Additional Past Medical History / Comment(s): ovarian cysts, scoliosis History of Any Multi-Drug Resistant Organisms: None Reported Past Surgical History: Tonsillectomy, Tubal Ligation Past Anesthesia/Blood Transfusion Reactions: No Reported Reaction Past Psychological History: ADD/ADHD, Anxiety, Depression Smoking Status: Former smoker Past Alcohol Use History: None Reported Past Drug Use History: None Reported - Past Family History Mother Additional Family Medical History / Comment(s): depression Father Family Medical History: No Reported History Additional Family Medical History / Comment(s): bipolar General Exam Limitations: no limitations General appearance: alert, in no apparent distress, other (This is a well- developed, well-nourished adult female patient in no acute distress. Vital signs upon presentation are temperature 97.6F, pulse 84, respirations 20, blood pressure 114/72, pulse ox 100% on room air.) Eye exam: Present: normal appearance, PERRL, EOMI. Absent: scleral icterus, conjunctival injection, periorbital swelling ENT exam: Present: normal exam, normal oropharynx, mucous membranes moist Respiratory exam: Present: normal lung sounds bilaterally. Absent: respiratory distress, wheezes, rales, rhonchi, stridor Cardiovascular Exam: Present: regular rate, normal rhythm, normal heart sounds. Absent: systolic murmur, diastolic murmur, rubs, gallop, clicks GI/Abdominal exam: Present: soft, normal bowel sounds. Absent: distended, tenderness, guarding, rebound, rigid Neurological exam: Present: alert, oriented X3, CN II-XII intact, other (Strength in all 4 extremities is 5/5.) Psychiatric exam: Present: normal affect, normal mood Skin exam: Present: warm, dry, intact, normal color. Absent: rash Course Vital Signs 02/25/19 01:32 Temperature 97.6 F Pulse Rate 84 Respiratory 20 Rate Blood Pressure 114/72 O2 Sat by Pulse 100 Oximetry EKG Findings - EKG Comments: EKG Findings:: EKG obtained at 01 56 shows normal sinus rhythm with a ventricu lar to 72, CT interval 148, QRS duration 84, QT 392, QTc 429. No evidence of ST elevation or depression. Medical Decision Making - Medical Decision Making 23-year-old female patient presented to the emergency department today for evaluation of palpitations, shortness breath, and back pain. States she started feeling poorly an hour after taking her new medication Cymbalta. She is not having any lip or tongue swelling. Not having any throat swelling. States that her back pain is chronic related to her scoliosis. She was given IV fluids, EKG showed normal sinus rhythm. Given Toradol for back pain. Upon reevaluation she still reporting back pain but states her other symptoms have improved. She'll be discharged at this time to follow-up with her primary care physician, she is instructed to stop taking Cymbalta until she discusses it with her physician. Return parameters were discussed in detail. She verbalizes understanding and agrees with this plan Disposition Clinical Impression: Medication reaction, Back pain Disposition: HOME SELF-CARE Condition: Good Instructions (If sedation given, give patient instructions): Heart Palpitations (ED), Back Pain (ED) Additional Instructions: Rest. Follow up to primary care physician for recheck in 1-2 days. Call in the morning for further instruction regarding medication use. Return to the emergency department immediately for any new, worsening, or concerning symptoms. Is patient prescribed a controlled substance at d/c from ED?: No Referrals: Yvette Lin DO [Primary Care Provider] - 1-2 days Time of Disposition: 03:18
[2019-02-25] MEDS ORDERED: traMADol 50 MG STARTER PACK 3 TAB BTL PO STA (03:19)
[2019-02-25 03:31] VITALS: BP 110/67; PULSE 68; RESP 16; TEMP 98.4
== END 2019-02-25 03:31 | disposition home or self-care (01) ==
LOC: EC 01:28
DX: R00.2 Palpitations (principal); T43.215A Adverse effect of selective serotonin and norepinephrine reuptake inhibitors, initial encounter; M41.9 Scoliosis, unspecified; M54.9 Dorsalgia, unspecified; F90.9 Attention-deficit hyperactivity disorder, unspecified type; F41.9 Anxiety disorder, unspecified; F32.9 Major depressive disorder, single episode, unspecified; Z79.899 Other long term (current) drug therapy; Z87.891 Personal history of nicotine dependence
CPT/HCPCS: 93005; 96374; 96375; 96361 ×2; 99284; J2405; J1885

== ENCOUNTER 2019-06-28 07:05 | Emergency (ER) | payer BC, OTHER ==
[2019-06-28 07:18] VITALS: TEMP 98.1
[2019-06-28] MEDS ORDERED: ONDANSETRON 4 MG/2 ML VIAL IVP STA (07:29)
[2019-06-28] MEDS ORDERED: SODIUM CHLORIDE 0.9% 1,000 ML IV STA (07:29)
[2019-06-28] MEDS ORDERED: SODIUM CHLORIDE 0.9% 2,000 ML IV STA (07:29)
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
[2019-06-28 08:13] LABS: Basophils % (A) 0 %; Eosinophils # (A) 0.4 k/uL (0-0.7); Eosinophils % (A) 5 %; HCT 38.6 % (34.0-46.0); HGB 13.4 gm/dL (11.4-16.0); Lymphocytes # (A) 0.4 k/uL (1.0-4.8); Lymphocytes % (A) 4 %; MCH 31.4 pg (25.0-35.0); MCHC 34.9 g/dL (31.0-37.0); MCV 90.1 fL (80.0-100.0); Mean Platelet Volume 8.3; Monocytes # (A) 0.2 k/uL (0-1.0); Monocytes % (A) 2 %; Neutrophils # (A) 7.4 k/uL (1.3-7.7); Neutrophils % (A) 88 %; Platelet Count 105 k/uL (150-450); RBC 4.28 m/uL (3.80-5.40); RDW 11.7 % (11.5-15.5); WBC 8.4 k/uL (3.8-10.6)
[2019-06-28 08:14] LABS: Appearance,Urine Cloudy (Clear); Bilirubin,Urine Negative (Negative); Blood,Urine Negative (Negative); Color,Urine Yellow; Glucose,Urine (UA) Negative (Negative); Hyaline Casts,Urine 1 /lpf (0-2); Ketones,Urine 1+ (Negative); Leukocyte Esterase,Urine Small (Negative); Mucus,Urine Rare /hpf; Nitrite,Urine Negative (Negative); Protein,Urine Negative (Negative); RBC,Urine 3 /hpf (0-5); Specific Gravity,Urine 1.026 (1.001-1.035); Squamous Epithelial Cell,Urine 13 /hpf (0-4); Urobilinogen,Urine <2.0 mg/dL (<2.0); WBC,Urine 3 /hpf (0-5)
[2019-06-28 08:21] LABS: ALT 19 U/L (4-34); AST 28 U/L (14-36); African American GFR (CKD) >90 (>60 ml/min/1.73 sqM); Albumin 4.7 g/dL (3.5-5.0); Alkaline Phosphatase 57 U/L (38-126); Anion Gap 10 mmol/L; Blood Urea Nitrogen 18 mg/dL (7-17); Calcium 9.3 mg/dL (8.4-10.2); Carbon Dioxide 23 mmol/L (22-30); Chloride 104 mmol/L (98-107); Glucose 117 mg/dL (74-99); Non-African American GFR(CKD) >90 (>60 ml/min/1.73 sqM); Potassium 4.2 mmol/L (3.5-5.1); Sodium 137 mmol/L (137-145); Total Bilirubin 1.1 mg/dL (0.2-1.3); Total Protein 7.7 g/dL (6.3-8.2)
[2019-06-28] MEDS ORDERED: KETOROLAC 30 MG/ML 1 ML VIAL IVP STA (08:58)
[2019-06-28 09:01] VITALS: RESP 18
[2019-06-28] MEDS ORDERED: METOCLOPRAMIDE 5 MG/ML 2 ML VIAL IVP STA (09:21)
[2019-06-28 09:58] VITALS: BP 98/66; PULSE 82
== END 2019-06-28 10:02 | disposition home or self-care (01) ==
LOC: EC 07:05
DX: K52.9 Noninfective gastroenteritis and colitis, unspecified (principal); E86.0 Dehydration; F90.9 Attention-deficit hyperactivity disorder, unspecified type; F41.9 Anxiety disorder, unspecified; F31.9 Bipolar disorder, unspecified; M41.9 Scoliosis, unspecified; Z79.1 Long term (current) use of non-steroidal anti-inflammatories (NSAID); Z79.899 Other long term (current) drug therapy; Z88.8 Allergy status to other drugs, medicaments and biological substances; Z87.891 Personal history of nicotine dependence
CPT/HCPCS: 36415; 80053; 83690; 85025; 81001; 99284; 96374; 96375 ×2; 96361 ×2; J2765; J2405; J1885

== ENCOUNTER 2019-07-03 00:47 | Emergency (ER) | payer BC, OTHER ==
[2019-07-03] MEDS ORDERED: SODIUM CHLORIDE 0.9% 1,000 ML IV STA (01:35)
[2019-07-03] MEDS ORDERED: LORazepam 2 MG/ML INJ IV STA (01:36)
--- NOTE | 2019-07-03 01:51 | XR ---
EXAMINATION TYPE: XR chest 2V DATE OF EXAM: 07/03/2019 COMPARISON: 01/10/2013 HISTORY: Congestion TECHNIQUE: 2 views FINDINGS: Heart and mediastinum are normal. Lungs are clear. Diaphragm is normal. Bony thorax appears normal. IMPRESSION: Normal chest. No change.
[2019-07-03 03:41] LABS: ALT 15 U/L (4-34); AST 26 U/L (14-36); African American GFR (CKD) >90 (>60 ml/min/1.73 sqM); Albumin 4.5 g/dL (3.5-5.0); Alkaline Phosphatase 51 U/L (38-126); Anion Gap 9 mmol/L; Blood Urea Nitrogen 12 mg/dL (7-17); Calcium 9.3 mg/dL (8.4-10.2); Carbon Dioxide 30 mmol/L (22-30); Chloride 104 mmol/L (98-107); Glucose 101 mg/dL (74-99); Magnesium 1.8 mg/dL (1.6-2.3); Non-African American GFR(CKD) >90 (>60 ml/min/1.73 sqM); Potassium 3.6 mmol/L (3.5-5.1); Sodium 143 mmol/L (137-145); Total Bilirubin 0.3 mg/dL (0.2-1.3); Total Protein 7.2 g/dL (6.3-8.2)
[2019-07-03 03:49] LABS: D-Dimer 0.2 mg/L FEU (<0.60); Prothrombin Time 10.6 sec (9.0-12.0)
[2019-07-03 03:50] LABS: Appearance,Urine Clear (Clear); Bilirubin,Urine Negative (Negative); Blood,Urine Small (Negative); Color,Urine Light Yellow; Glucose,Urine (UA) Negative (Negative); Ketones,Urine Negative (Negative); Leukocyte Esterase,Urine Negative (Negative); Mucus,Urine Rare /hpf; Nitrite,Urine Negative (Negative); PH, Urine 7.5 (5.0-8.0); Protein,Urine Negative (Negative); RBC,Urine <1 /hpf (0-5); Specific Gravity,Urine 1.008 (1.001-1.035); Squamous Epithelial Cell,Urine 2 /hpf (0-4); Urobilinogen,Urine <2.0 mg/dL (<2.0); WBC,Urine 1 /hpf (0-5)
[2019-07-03 03:53] LABS: Basophils % (A) 0 %; Eosinophils # (A) 0.3 k/uL (0-0.7); Eosinophils % (A) 7 %; HGB 11.8 gm/dL (11.4-16.0); Lymphocytes # (A) 1.1 k/uL (1.0-4.8); Lymphocytes % (A) 23 %; MCH 31.7 pg (25.0-35.0); MCHC 35.8 g/dL (31.0-37.0); MCV 88.4 fL (80.0-100.0); Mean Platelet Volume 7.3; Monocytes # (A) 0.3 k/uL (0-1.0); Monocytes % (A) 6 %; Neutrophils # (A) 2.9 k/uL (1.3-7.7); Neutrophils % (A) 61 %; RBC 3.73 m/uL (3.80-5.40); RDW 11.7 % (11.5-15.5); WBC 4.8 k/uL (3.8-10.6)
[2019-07-03 03:55] LABS: Platelet Count 179 k/uL (150-450)
[2019-07-03 04:00] LABS: Amphetamine Screen,Urine Not Detected (NotDetected); Barbiturate Screen,Urine Not Detected (NotDetected); Benzodiazepines Screen,Urine Not Detected (NotDetected); Cocaine Screen,Urine Not Detected (NotDetected); Methadone Screen, Urine Not Detected (NotDetected); Opiate Screen,Urine Not Detected (NotDetected); Oxycodone Screen, Urine Not Detected (NotDetected); Phencyclidine Screen,Urine Not Detected (NotDetected); Tricyclic Antidepressant,Urine Not Detected (NotDetected); Urn Cannabinoid Scrn Detected (NotDetected)
--- NOTE | 2019-07-03 04:22 | ED ---
General Adult HPI - General Chief complaint: Chest Pain Stated complaint: Chest pain Time Seen by Provider: 07/03/19 00:55 Source: patient Mode of arrival: ambulatory Limitations: no limitations - History of Present Illness Initial comments: 23-year-old female patient presents to the emergency permit today for evaluation of palpitations and chest discomfort. Patient states this started one to 2 hours ago while watching television. Patient states that she does have a history of anxiety and her symptoms are similar but this seems worse. She denies any radiation of the pain through to her back. Denies nausea or vomiting. Patient does admit to taking CBD prior to symptom onset, but states she has had this in the past. She denies any fever or chills. Denies cough or congestion. Denies increased intake of caffeine, energy drinks, or other sti mulants. Patient states she does take BuSpar as needed for anxiety but hasn't taken in quite some time. Denies any chance of . Patient denies any recent rash, abdominal pain, nausea, vomiting, diarrhea, constipation, back pain, numbness, tingling, dizziness, weakness, hematuria, dysuria, urinary urgency, urinary frequency, headache, visual changes, or any other complaints. - Related Data Home Medications Medication Instructions Recorded Confirmed Dextroamphetamine/Amphetamine 20 mg PO QAM 12/28/18 02/25/19 [Adderall Xr] Dextroamphetamine/Amphetamine 10 mg PO DAILY@1200 12/28/18 02/25/19 [Adderall] Celecoxib [CeleBREX] 200 mg PO DAILY 02/25/19 02/25/19 DULoxetine HCL [Cymbalta] 30 mg PO DAILY 02/25/19 02/25/19 Meloxicam [Mobic] 7.5 mg PO DAILY 02/25/19 02/25/19 busPIRone HCL 10 mg PO BID 02/25/19 02/25/19 Previous Rx's Medication Instructions Recorded Metoclopramide HCl [Reglan] 10 mg PO AC-TID PRN #10 tablet 06/28/19 Allergies Allergy/AdvReac Type Severity Reaction Status Date / Time duloxetine [From Cymbalta] Allergy Chest Pain Verified 07/03/19 00:53 Review of Systems ROS Statement: Those systems with pertinent positive or pertinent negative responses have been documented in the HPI. ROS Other: All systems not noted in ROS Statement are negative. Past Medical History Past Medical History: No Reported History Additional Past Medical History / Comment(s): ovarian cysts, scoliosis History of Any Multi-Drug Resistant Organisms: None Reported Past Surgical History: Tonsillectomy, Tubal Ligation Past Anesthesia/Blood Transfusion Reactions: No Reported Reaction Past Psychological History: ADD/ADHD, Anxiety, Depression Smoking Status: Former smoker Past Alcohol Use History: None Reported Past Drug Use History: None Reported - Past Family History Mother Additional Family Medical History / Comment(s): depression Father Family Medical History: No Reported History Additional Family Medical History / Comment(s): bipolar General Exam Limitations: no limitations General appearance: alert, in no apparent distress, other (This is a well- developed, well-nourished adult female patient in no acute distress. Vital signs upon presentation are temperature 98.2F, pulse 1:30, respirations 24, blood pressure 134/76, pulse ox 100% on room air.) Eye exam: Present: normal appearance, PERRL, EOMI. Absent: scleral icterus, conjunctival injection, periorbital swelling ENT exam: Present: normal exam, normal oropharynx, mucous membranes moist Respiratory exam: Present: normal lung sounds bilaterally. Absent: respiratory distress, wheezes, rales, rhonchi, stridor Cardiovascular Exam: Present: normal rhythm, tachycardia, normal heart sounds. Absent: systolic murmur, diastolic murmur, rubs, gallop, clicks GI/Abdominal exam: Present: soft, normal bowel sounds. Absent: distended, tenderness, guarding, rebound, rigid Neurological exam: Present: alert, oriented X3, CN II-XII intact Psychiatric exam: Present: normal affect, normal mood Skin exam: Present: warm, dry, intact, normal color. Absent: rash Course Vital Signs 07/03/19 07/03/19 00:48 01:03 Temperature 98.2 F Pulse Rate 130 H 91 Respiratory 24 18 Rate Blood Pressure 134/76 132/82 O2 Sat by Pulse 100 98 Oximetry EKG Findings - EKG Comments: EKG Findings:: EKG obtained at 0102 shows normal sinus rhythm with a ventricular rate of 99, W[place] interval 208, QRS duration 88, QT 366, QTc 469. No evidence of ST elevation or depression. Medical Decision Making - Lab Data Result diagrams: 07/03/19 03:04 07/03/19 03:04 Lab Results 07/03/19 07/03/19 07/03/19 Range/Units 01:54 03:04 03:04 WBC 4.8 (3.8-10.6) k/uL RBC 3.73 L (3.80-5.40) m/uL Hgb 11.8 (11.4-16.0) gm/dL Hct 33.0 L (34.0-46.0) % MCV 88.4 (80.0-100.0) fL MCH 31.7 (25.0-35.0) pg MCHC 35.8 (31.0-37.0) g/dL RDW 11.7 (11.5-15.5) % Plt Count 179 D (150-450) k/uL Neutrophils % 61 % Lymphocytes % 23 % Monocytes % 6 % Eosinophils % 7 % Basophils % 0 % Neutrophils # 2.9 (1.3-7.7) k/uL Lymphocytes # 1.1 (1.0-4.8) k/uL Monocytes # 0.3 (0-1.0) k/uL Eosinophils # 0.3 (0-0.7) k/uL Basophils # 0.0 (0-0.2) k/uL PT 10.6 (9.0-12.0) sec INR 1.0 (<1.2) APTT 24.0 (22.0-30.0) sec D-Dimer 0.20 (<0.60) mg/L FEU Sodium (137-145) mmol/L Potassium (3.5-5.1) mmol/L Chloride (98-107) mmol/L Carbon Dioxide (22-30) mmol/L Anion Gap mmol/L BUN (7-17) mg/dL Creatinine (0.52-1.04) mg/dL Est GFR (CKD-EPI)AfAm (>60 ml/min/1.73 sqM) Est GFR (CKD-EPI)NonAf (>60 ml/min/1.73 sqM) Glucose (74-99) mg/dL Calcium (8.4-10.2) mg/dL Magnesium (1.6-2.3) mg/dL Total Bilirubin (0.2-1.3) mg/dL AST (14-36) U/L ALT (4-34) U/L Alkaline Phosphatase (38-126) U/L Troponin I (0.000-0.034) ng/mL Total Protein (6.3-8.2) g/dL Albumin (3.5-5.0) g/dL Urine Color Light Yellow Urine Appearance Clear (Clear) Urine pH 7.5 (5.0-8.0) Ur Specific [place] 1.008 (1.001-1.035) Urine Protein Negative (Negative) Urine Glucose (UA) Negative (Negative) Urine Ketones Negative (Negative) Urine Blood Small H (Negative) Urine Nitrite Negative (Negative) Urine Bilirubin Negative (Negative) Urine Urobilinogen <2.0 (<2.0) mg/dL Ur Leukocyte Esterase Negative (Negative) Urine RBC <1 (0-5) /hpf Urine WBC 1 (0-5) /hpf Ur Squamous Epith Cells 2 (0-4) /hpf Urine Mucus Rare H (None) /hpf Urine Opiates Screen Not Detected (NotDetected) Ur Oxycodone Screen Not Detected (NotDetected) Urine Methadone Screen Not Detected (NotDetected) Ur Propoxyphene Screen Not Detected (NotDetected) Ur Barbiturates Screen Not Detected (NotDetected) U Tricyclic Antidepress Not Detected (NotDetected) Ur Phencyclidine Scrn Not Detected (NotDetected) Ur Amphetamines Screen Not Detected (NotDetected) U Methamphetamines Scrn Not Detected (NotDetected) U Benzodiazepines Scrn Not Detected (NotDetected) Urine Cocaine Screen Not Detected (NotDetected) U Marijuana (THC) Screen Detected H (NotDetected) 07/03/19 07/03/19 Range/Units 03:04 03:04 WBC (3.8-10.6) k/uL RBC (3.80-5.40) m/uL Hgb (11.4-16.0) gm/dL Hct (34.0-46.0) % MCV (80.0-100.0) fL MCH (25.0-35.0) pg MCHC (31.0-37.0) g/dL RDW (11.5-15.5) % Plt Count (150-450) k/uL Neutrophils % % Lymphocytes % % Monocytes % % Eosinophils % % Basophils % % Neutrophils # (1.3-7.7) k/uL Lymphocytes # (1.0-4.8) k/uL Monocytes # (0-1.0) k/uL Eosinophils # (0-0.7) k/uL Basophils # (0-0.2) k/uL PT (9.0-12.0) sec INR (<1.2) APTT (22.0-30.0) sec D-Dimer (<0.60) mg/L FEU Sodium 143 (137-145) mmol/L Potassium 3.6 (3.5-5.1) mmol/L Chloride 104 (98-107) mmol/L Carbon Dioxide 30 (22-30) mmol/L Anion Gap 9 mmol/L BUN 12 (7-17) mg/dL Creatinine 0.54 (0.52-1.04) mg/dL Est GFR (CKD-EPI)AfAm >90 (>60 ml/min/1.73 sqM) Est GFR (CKD-EPI)NonAf >90 (>60 ml/min/1.73 sqM) Glucose 101 H (74-99) mg/dL Calcium 9.3 (8.4-10.2) mg/dL Magnesium 1.8 (1.6-2.3) mg/dL Total Bilirubin 0.3 (0.2-1.3) mg/dL AST 26 (14-36) U/L ALT 15 (4-34) U/L Alkaline Phosphatase 51 (38-126) U/L Troponin I <0.012 (0.000-0.034) ng/mL Total Protein 7.2 (6.3-8.2) g/dL Albumin 4.5 (3.5-5.0) g/dL Urine Color Urine Appearance (Clear) Urine pH (5.0-8.0) Ur Specific [place] (1.001-1.035) Urine Protein (Negative) Urine Glucose (UA) (Negative) Urine Ketones (Negative) Urine Blood (Negative) Urine Nitrite (Negative) Urine Bilirubin (Negative) Urine Urobilinogen (<2.0) mg/dL Ur Leukocyte Esterase (Negative) Urine RBC (0-5) /hpf Urine WBC (0-5) /hpf Ur Squamous Epith Cells (0-4) /hpf Urine Mucus (None) /hpf Urine Opiates Screen (NotDetected) Ur Oxycodone Screen (NotDetected) Urine Methadone Screen (NotDetected) Ur Propoxyphene Screen (NotDetected) Ur Barbiturates Screen (NotDetected) U Tricyclic Antidepress (NotDetected) Ur Phencyclidine Scrn (NotDetected) Ur Amphetamines Screen (NotDetected) U Methamphetamines Scrn (NotDetected) U Benzodiazepines Scrn (NotDetected) Urine Cocaine Screen (NotDetected) U Marijuana (THC) Screen (NotDetected) Disposition Clinical Impression: Palpitations, Chest pain Disposition: HOME SELF-CARE Condition: Good Instructions (If sedation given, give patient instructions): Chest Pain (ED), Heart Palpitations (ED) Additional Instructions: Increase fluids. Rest. Follow-up with primary care physician for recheck in 1- 2 days. Discussed cardiac monitoring and anxiety medication. Return to the emergency department immediately for any new, worsening, or concerning symptoms. Is patient prescribed a controlled substance at d/c from ED?: No Referrals: Yvette Lin DO [Primary Care Provider] - 1-2 days Time of Disposition: 04:22
[2019-07-03 04:41] VITALS: BP 104/59; PULSE 87; RESP 16; TEMP 98.9
== END 2019-07-03 04:39 | disposition home or self-care (01) ==
LOC: EC 00:47
DX: R07.9 Chest pain, unspecified (principal); R00.2 Palpitations; R00.0 Tachycardia, unspecified; F90.9 Attention-deficit hyperactivity disorder, unspecified type; F41.9 Anxiety disorder, unspecified; F32.9 Major depressive disorder, single episode, unspecified; Z79.899 Other long term (current) drug therapy; Z79.1 Long term (current) use of non-steroidal anti-inflammatories (NSAID); Z88.8 Allergy status to other drugs, medicaments and biological substances; Z87.891 Personal history of nicotine dependence
CPT/HCPCS: 36415; 93005; 85379; 80053; 84443; 83735; 84484; 85025; 85610; 85730; 81001; 80306; 71046; 96374; 96361; 99285; J2060

== ENCOUNTER 2023-04-11 20:33 | Emergency (ER) | payer BC, OTHER ==
[2023-04-11 20:53] VITALS: BP 111/75; PULSE 116; RESP 18; TEMP 97.8
--- NOTE | 2023-04-11 20:55 | ED ---
General Adult HPI - General Chief complaint: Overdose Stated complaint: Fall Time Seen by Provider: 04/11/23 20:45 Source: patient, police, EMS Mode of arrival: EMS Limitations: no limitations - History of Present Illness Initial comments: Moni is a 27yo F brought to the ER by EMS for evaluation of head injury and intoxication. EMS reports that PD was contacted for a well check because the patients father could not get a hold of her. Police went to the hotel the patient is currently staying at, upon their arrival they reportedly found the patient unresponsive in the shower. Upon EMS arrival the patient was awake somewhat agitated. She was noted to have a hematoma on her left forehead however staff at the [facility] reported that the bruise was present earlier in the day. . Patient admits that she was drinking tequila earlier tonight. Denies any other injuries. Reports that she safe at home. Denies anybody was hurting her. Per EMS they were told by hotel staff the 3 men left the patient's room shortly prior to police arrival. - Related Data Home Medications Medication Instructions Recorded Confirmed Dextroamphetamine/Amphetamine 20 mg PO QAM 12/28/18 02/25/19 [Adderall Xr] Dextroamphetamine/Amphetamine 10 mg PO DAILY@1200 12/28/18 02/25/19 [Adderall] Celecoxib [CeleBREX] 200 mg PO DAILY 02/25/19 02/25/19 DULoxetine HCL [Cymbalta] 30 mg PO DAILY 02/25/19 02/25/19 Meloxicam [Mobic] 7.5 mg PO DAILY 02/25/19 02/25/19 busPIRone HCL 10 mg PO BID 02/25/19 02/25/19 Previous Rx's Medication Instructions Recorded Metoclopramide HCl [Reglan] 10 mg PO AC-TID PRN #10 tablet 06/28/19 Allergies Allergy/AdvReac Type Severity Reaction Status Date / Time duloxetine [From Cymbalta] Allergy Chest Pain Verified 10/29/22 17:58 Review of Systems ROS Statement: Those systems with pertinent positive or pertinent negative responses have been documented in the HPI. ROS Other: All systems not noted in ROS Statement are negative. Past Medical History Past Medical History: No Reported History Additional Past Medical History / Comment(s): ovarian cysts, scoliosis History of Any Multi-Drug Resistant Organisms: None Reported Past Surgical History: Tonsillectomy, Tubal Ligation Past Anesthesia/Blood Transfusion Reactions: No Reported Reaction Past Psychological History: ADD/ADHD, Anxiety, Depression Smoking Status: Former smoker Past Alcohol Use History: None Reported Past Drug Use History: None Reported - Past Family History Mother Additional Family Medical History / Comment(s): depression Father Family Medical History: No Reported History Additional Family Medical History / Comment(s): bipolar General Exam Limitations: no limitations General appearance: alert Head exam: Present: other (Large hematoma left forehead, deep purple and blue colors, does not appear acute) Eye exam: Present: PERRL ENT exam: Present: normal exam Neck exam: Present: normal inspection Respiratory exam: Present: normal lung sounds bilaterally. Absent: respiratory distress Cardiovascular Exam: Present: regular rate, normal rhythm GI/Abdominal exam: Present: soft. Absent: distended Rectal exam: Present: deferred Neurological exam: Present: alert, other (Oriented to person place and day, slurred speech) Psychiatric exam: Present: other (Agitated, tearful stating that being intoxicated is a violation of her probation) Course Vital Signs 04/11/23 20:35 Temperature 97.8 F Pulse Rate 116 H Respiratory 18 Rate Blood Pressure 111/75 O2 Sat by Pulse 98 Oximetry Medical Decision Making - Medical Decision Making The patient was seen and evaluated upon arrival to the emergency department. Patient admitted that she had been drinking alcohol, she admitted that she was intoxicated but reported that she has no complaints are for injury and does not want to be worked up. Patient states she doesn't have a headache. She doesn't have any complaints she was brought here against her will by the police and EMS. Patient denies suicidal or homicidal ideations. After some brief negotiations patient was initially agreeable to head CT but would not allow us to start an IV. Patient went to CT she was then noted to be walking around the department she ambulated independently to the restroom and back to her room. She was on the phone reportedly with her significant other. Patient was complaining that we are holding her against her will. Patient was awake alert oriented to person place and events. Patient was ambulating without difficulty. Patient significant other came to the waiting room and patient walked out of the ER independently. Patient's significant other states she knows that she has been drinking and he will be driving her home. Patient would not sign any paperwork stated she knew she was fine she didn't need us doing anything for her we can keep her against her will and she was leaving. Subsequently the head CT came back with a possible small subdural hematoma measuring 2 mm I contacted the patient's cell phone number provided to registration but the number was no longer in service I contacted the patient's significant other Dakota, there was no answer and voice mail was not set up I contacted the patient's mother via number listed and the call was declined Charge nurse to contact PD to do well check Was pt. sent in by a medical professional or institution (ELEUTERIO Ogden, SHEET METAL WORKER, urgent care, hospital, or fci...) When possible be specific @ -No Did you speak to anyone other than the patient for history (EMS, parent, family, police, friend...)? What history was obtained from this source @ -EMS, law enforcement Did you review nursing and triage notes (agree or disagree)? Why? @ -I reviewed and agree with nursing and triage notes Were old charts reviewed (outside hosp., previous admission, EMS record, old EKG, old radiological studies, urgent care reports/EKG's, fci records)? Report findings @ -No old charts were reviewed Differential Diagnosis (chest pain, altered mental status, abdominal pain women, abdominal pain men, vaginal bleeding, weakness, fever, dyspnea, syncope, headache, dizziness, GI bleed, back pain, seizure, CVA, palpatations, mental health)? @ -Differential includes head trauma, concussion, intoxication EKG interpreted by me (3pts min.). @ -As above X-rays interpreted by me (1pt min.). @ -None done CT interpreted by me (1pt min.). @ -None done U/S interpreted by me (1pt. min.). @ -None done What testing was considered but not performed or refused? (CT, X-rays, U/S, labs)? Why? @ -She refused labs, breathalyzer or anything except the head CT What meds were considered but not given or refused? Why? @ -None Did you discuss the management of the patient with other professionals (professionals i.e. ELEUTERIO Ogden, SHEET METAL WORKER, lab, RT, psych nurse, director of social media marketing, auto accessories installer, teacher, police or patrol park officer, director of casework department)? Give summary @ -No Was smoking cessation discussed for >3mins.? @ -No Was critical care preformed (if so, how long)? @ -No Were there social determinants of health that impacted care today? How? (Homelessness, low income, unemployed, alcoholism, drug addiction, transportation, low edu. Level, literacy, decrease access to med. care, fdc, rehab)? @ -No Was there de-escalation of care discussed even if they declined (Discuss DNR or withdrawal of care, Hospice)? DNR status @ -No What co-morbidities impacted this encounter? (DM, HTN, Smoking, COPD, CAD, C ancer, CVA, ARF, Chemo, Hep., AIDS, mental health diagnosis, sleep apnea, morbid obesity)? @ -None Was patient admitted / discharged? Hospital course, mention meds given and route, prescriptions, significant lab abnormalities, going to OR and other pertinent info. @ -Patient was seen and evaluated upon arrival. Patient was tearful stating that she was upset because drinking alcohol as a violation of her probation she notes she is going to be in trouble. Once law enforcement left the facility patient no longer wanted to be at the ER no longer want any workup and wanted to leave. She was agreeable to head CT. She had a head CT performed but her significant other arrived at the hospital and she stated that she was leaving she knew nothing was wrong she did note stated he could not hold her against her will. At this time the patient's awake alert oriented she does not have slurred speech or abnormal gait. She repeatedly stated that the present her head was from days ago which is also what hotel staff advised EMS of. Patient states she has no injuries today she was just drinking and she laid down in her shower. Patient does not want to stay at the hospital we cannot petition her at this time she was permitted to elope without being restrained. Undiagnosed new problem with uncertain prognosis? @ -No Drug Therapy requiring intensive monitoring for toxicity (Heparin, Nitro, Insulin, Cardizem)? @ -No Were any procedures done? @ -No Diagnosis/symptom? @ Contusion left forehead Acute, or Chronic, or Acute on Chronic? @ -default Uncomplicated (without systemic symptoms) or Complicated (systemic symptoms)? @ -default Side effects of treatment? @ -No Exacerbation, Progression, or Severe Exacerbation? @ -No Poses a threat to life or bodily function? How? (Chest pain, USA, [place], pneumonia, PE, COPD, DKA, ARF, appy, cholecystitis, CVA, Diverticulitis, Homicidal, Suicidal, threat to staff... and all critical care pts) @ Yes Disposition Clinical Impression: Forehead contusion, Alcohol intoxication Disposition: LEFT AGAINST MEDICAL ADVICE Condition: Undetermined Is patient prescribed a controlled substance at d/c from ED?: No Referrals: Yevtte Lin DO [Primary Care Provider] - 1-2 days
--- NOTE | 2023-04-11 21:46 | CT ---
EXAMINATION TYPE: CT brain cspine wo con CT DLP: 1054.9 mGycm, Automated exposure control for dose reduction was used. DATE OF EXAM: 04/11/2023 9:12 PM COMPARISON: None. CLINICAL INDICATION:Female, 27 years old with history of head injury, lOC; head injury TECHNIQUE: Brain: Multiple axial CT images of the brain were obtained without IV contrast. Cspine: Axial CT images from the skull base to the inferior aspect of T2 we obtained without intraven ous contrast. Coronal and sagittal reformatted images were also reviewed. FINDINGS: Brain: Extra-axial spaces: There is question of small subdural hematoma versus artifact overlying the left f rontal lobe; if real this measures no more than 2 mm in thickness. Ventricular system: Within normal limits. Cerebral parenchyma: No increased attenuation to suggest acute intraparenchymal hemorrhage. The gra y-white matter interface appears maintained. No significant atrophy. White matter unremarkable by C T. Cerebellum: No acute abnormality. Mass effect: No evidence of mass effect or midline shift. Intracranial vasculature: Unremarkable Soft tissues: Soft tissue scalp hematoma over the left frontal bone up to 11 mm in thickness. Visualized orbits: Orbital contents appear grossly intact. Calvarium/osseous structures: No evidence of calvarial fracture. Paranasal sinuses and mastoid air cells: Clear MRI is more sensitive for detecting acute processes such as infarct, and may be considered if clinica lly warranted. Cervical spine: Evaluation is significantly limited by motion. Fracture: No definite fracture is seen. There are multiple step-off artifacts on the reconstructions noted. Osseous structures, spinal canal/neural foramina: Osseous structures appear unremarkable. No signific ant bony canal or neural foraminal stenoses are believed to be present. Vertebral alignment: No clear evidence of traumatic malalignment. Neck soft tissues: No acute finding.. Other: Lung apices show no acute infiltrate or pneumothorax. IMPRESSION: Examination limited by motion. CT head: 1. Tiny subdural hematoma versus artifact over the left frontal lobe. 2. Left frontal scalp hematoma, without evidence of calvarial fracture. CT cervical spine: 1. No evidence of cervical spine fracture or traumatic malalignment.
== END 2023-04-11 21:45 | disposition left against medical advice (07) ==
LOC: EC 20:33
DX: S00.03XA Contusion of scalp, initial encounter (principal); F10.129 Alcohol abuse with intoxication, unspecified; Z87.891 Personal history of nicotine dependence; Z88.8 Allergy status to other drugs, medicaments and biological substances; Z86.59 Personal history of other mental and behavioral disorders; Z53.29 Procedure and treatment not carried out because of patient's decision for other reasons; X58.XXXA Exposure to other specified factors, initial encounter
CPT/HCPCS: 70450; 72125; 99284

== ENCOUNTER 2023-04-12 16:16 | Emergency (ER) | payer OTHER ==
--- NOTE | 2023-04-12 16:39 | ED ---
General Adult HPI - General Chief complaint: Recheck/Abnormal Lab/Rx Stated complaint: Fall Time Seen by Provider: 04/12/23 16:33 Source: patient, RN notes reviewed Mode of arrival: ambulatory Limitations: no limitations - History of Present Illness Initial comments: 27-year-old female sent emergency Department chief complaint of a head injury. Patient was seen here yesterday after she was found to be intoxicated and out of him. Patient has CT of her brain and C-spine CT showed possible intracranial hemorrhage. Patient left AGAINST MEDICAL ADVICE and left prior to results. Patient presents today for recheck. She states she only has minimal headache and states it feels more numb over the left side of her head where she has a hematoma. She denies any neck pain denies any dizziness she does have slight nausea no photophobia no diplopia. Patient denies any extremity weakness, paresthesias. - Related Data Home Medications Medication Instructions Recorded Confirmed Dextroamphetamine/Amphetamine 20 mg PO QAM 12/28/18 02/25/19 [Adderall Xr] Dextroamphetamine/Amphetamine 10 mg PO DAILY@1200 12/28/18 02/25/19 [Adderall] Celecoxib [CeleBREX] 200 mg PO DAILY 02/25/19 02/25/19 DULoxetine HCL [Cymbalta] 30 mg PO DAILY 02/25/19 02/25/19 Meloxicam [Mobic] 7.5 mg PO DAILY 02/25/19 02/25/19 busPIRone HCL 10 mg PO BID 02/25/19 02/25/19 Previous Rx's Medication Instructions Recorded Metoclopramide HCl [Reglan] 10 mg PO AC-TID PRN #10 tablet 06/28/19 Allergies Allergy/AdvReac Type Severity Reaction Status Date / Time duloxetine [From Cymbalta] Allergy Chest Pain Verified 04/12/23 16:31 Review of Systems ROS Statement: Those systems with pertinent positive or pertinent negative responses have been documented in the HPI. ROS Other: All systems not noted in ROS Statement are negative. Past Medical History Past Medical History: No Reported History Additional Past Medical History / Comment(s): ovarian cysts, scoliosis History of Any Multi-Drug Resistant Organisms: None Reported Past Surgical History: Tonsillectomy, Tubal Ligation Past Anesthesia/Blood Transfusion Reactions: No Reported Reaction Past Psychological History: ADD/ADHD, Anxiety, Depression Smoking Status: Former smoker Past Alcohol Use History: None Reported Past Drug Use History: None Reported - Past Family History Mother Additional Family Medical History / Comment(s): depression Father Family Medical History: No Reported History Additional Family Medical History / Comment(s): bipolar General Exam Limitations: no limitations General appearance: alert, in no apparent distress Head exam: Present: normocephalic, other (Left frontal, forehead region there is a large hematoma noted). Absent: atraumatic, normal inspection Eye exam: Present: normal appearance, PERRL, EOMI. Absent: scleral icterus, conjunctival injection, periorbital swelling ENT exam: Present: normal exam, normal oropharynx, mucous membranes moist Neck exam: Present: normal inspection, full ROM. Absent: tenderness, meningismus, lymphadenopathy Respiratory exam: Present: normal lung sounds bilaterally. Absent: respiratory distress, wheezes, rales, rhonchi, stridor Cardiovascular Exam: Present: regular rate, normal rhythm, normal heart sounds. Absent: systolic murmur, diastolic murmur, rubs, gallop, clicks Neurological exam: Present: alert, oriented X3, CN II-XII intact, reflexes normal, other (Finger to nose intact bilaterally without over shooting). Absent: motor sensory deficit Skin exam: Present: warm, dry, intact, normal color. Absent: rash Course Vital Signs 04/12/23 16:28 Temperature 98 F Pulse Rate 100 Respiratory 20 Rate Blood Pressure 129/71 O2 Sat by Pulse 98 Oximetry Medical Decision Making - Medical Decision Making Was pt. sent in by a medical professional or institution (, PA, BUS WASHER, urgent care, hospital, or jail...) When possible be specific @ -No Did you speak to anyone other than the patient for history (EMS, parent, family, police, friend...)? What history was obtained from this source @ -No Did you review nursing and triage notes (agree or disagree)? Why? @ -I reviewed and agree with nursing and triage notes Were old charts reviewed (outside hosp., previous admission, EMS record, old EKG, old radiological studies, urgent care reports/EKG's, jail records)? Report findings @ -[Reviewed CT, ER visit from yesterday Differential Diagnosis (chest pain, altered mental status, abdominal pain women, abdominal pain men, vaginal bleeding, weakness, fever, dyspnea, syncope, headache, dizziness, GI bleed, back pain, seizure, CVA, palpatations, mental health, musculoskeletal)? @ -Closed head Injury, concussion, intracranial hemorrhage EKG interpreted by me (3pts min.). @ -None X-rays interpreted by me (1pt min.). @ -None done CT interpreted by me (1pt min.). @ -CT brain shows no acute intracranial hemorrhage or mass effect or acute abnormality. This was compared to yesterday which was more likely artifact U/S interpreted by me (1pt. min.). @ -None done What testing was considered but not performed or refused? (CT, X-rays, U/S, labs)? Why? @ -None What meds were considered but not given or refused? Why? @ -None Did you discuss the management of the patient with other professionals (professionals i.e. , PA, BUS WASHER, lab, RT, psych nurse, social work administrator, journeyman molder, teacher, fire control officer, transplant case manager)? Give summary @ -No Was smoking cessation discussed for >3mins.? @ -No Was critical care preformed (if so, how long)? @ -No Were there social determinants of health that impacted care today? How? (Homelessness, low income, unemployed, alcoholism, drug addiction, transportation, low edu. Level, literacy, decrease access to med. care, residential, rehab)? @ -No Was there de-escalation of care discussed even if they declined (Discuss DNR or withdrawal of care, Hospice)? DNR status @ -No What co-morbidities impacted this encounter? (DM, HTN, Smoking, COPD, CAD, Cancer, CVA, ARF, Chemo, Hep., AIDS, mental health diagnosis, sleep apnea, morbid obesity)? @ -None Was patient admitted / discharged? Hospital course, mention meds given and route, prescriptions, significant lab abnormalities, going to OR and other pertinent info. @ -Discharge patient home normal CT there is no evidence of intracranial hemorrhage. Patient is stable has no complaints other than mild headache will be discharged in stable condition Undiagnosed new problem with uncertain prognosis? @ -No Drug Therapy requiring intensive monitoring for toxicity (Heparin, Nitro, Insulin, Cardizem)? @ -No Were any procedures done? @ -No Diagnosis/symptom? @ -Scalp hematoma Acute, or Chronic, or Acute on Chronic? @ -Acute Uncomplicated (without systemic symptoms) or Complicated (systemic symptoms)? @ -Uncomplicated Side effects of treatment? @ -No Exacerbation, Progression, or Severe Exacerbation? @ -No Poses a threat to life or bodily function? How? (Chest pain, [place], [place], pneumonia, PE, COPD, DKA, ARF, appy, cholecystitis, CVA, Diverticulitis, Homicidal, Suicidal, threat to staff... and all critical care pts) @ -No Disposition Clinical Impression: Scalp hematoma Disposition: HOME SELF-CARE Condition: Stable Instructions (If sedation given, give patient instructions): Head Injury (ED) Additional Instructions: Please return to the Emergency Department if symptoms worsen or any other concerns. Is patient prescribed a controlled substance at d/c from ED?: No Referrals: Yvette Lin DO [Primary Care Provider] - 1-2 days Time of Disposition: 17:13
[2023-04-12 16:49] VITALS: BP 129/71; PULSE 100; RESP 20; TEMP 98
--- NOTE | 2023-04-12 17:06 | CT ---
EXAMINATION TYPE: CT brain wo con DATE OF EXAM: 04/12/2023 COMPARISON: 04/11/2023 HISTORY: Fall, head injury- contusion to left portion of forehead. CT DLP: 1102.4 mGycm. Automated Exposure Control for Dose Reduction was Utilized. TECHNIQUE: CT scan of the head is performed without contrast. FINDINGS No significant change in the left frontal scalp hematoma. The ventricles, basal cisterns and sulci over the convexities within normal limits. There is no mass effect or shift of midline structures. No abnormal density is seen throughout the brain parenchyma and there is no acute intra or extra-axia l hemorrhage. The posterior fossa including the brainstem, fourth ventricle and cerebellar pontine angles appear no rmal. The intraorbital contents appear normal and symmetric. Visualized paranasal sinuses and mastoid air cells are well aerated. The calvarium is intact. IMPRESSION: 1. No change in the left frontal scalp hematoma. 2. No acute bleed or mass effect intracranially.
== END 2023-04-12 17:31 | disposition home or self-care (01) ==
LOC: EC 16:16
DX: S00.03XA Contusion of scalp, initial encounter (principal); S00.83XA Contusion of other part of head, initial encounter; F32.A Depression, unspecified; F41.9 Anxiety disorder, unspecified; F90.9 Attention-deficit hyperactivity disorder, unspecified type; Z79.899 Other long term (current) drug therapy; Z87.891 Personal history of nicotine dependence; Z88.8 Allergy status to other drugs, medicaments and biological substances; W19.XXXA Unspecified fall, initial encounter
CPT/HCPCS: 70450; 99284

== ENCOUNTER 2024-09-01 13:39 | Emergency (ER) | payer OTHER ==
[2024-09-01 14:03] VITALS: BP 154/85; PULSE 82; RESP 20; TEMP 98
--- NOTE | 2024-09-01 15:15 | ED ---
General Adult HPI - General Chief complaint: Neuro Symptoms/Deficit Stated complaint: Numbness R Side Time Seen by Provider: 09/01/24 14:48 Source: patient Mode of arrival: ambulatory Limitations: no limitations - History of Present Illness Initial comments: Patient is a 27-year-old female past medical history of migraine headache presenting today for intermittent right sided numbness and muscle spasms. Patient states she was sitting in class today when she felt like her right arm was spasming and fell tingling on the right side of her face. She has intermittent numbness and muscle spasms along the right side of her face, right upper extremity right lower extremity since then. This has not happened before. She has a history of migraine headaches. Currently denies a headache. Used to see a neurologist but has not been able to follow-up in 5 years due to insurance issues. She denies slurred speech, changes in vision, dizziness, new focal weakness. She has no history of strokes. Patient father had strokes and a heart attack, she is unsure about what age. She denies recent neck manipulation or neck injuries though does not some mild right sided neck discomfort. She is not on blood thinners. Denies chest pain or shortness of breath, but states like the right side of her chest is spasming. Denies abdominal pain, nausea or vomiting or fevers. - Related Data Home Medications Medication Instructions Recorded Confirmed Dextroamphetamine/Amphetamine 10 mg PO W/SUPPER 09/01/24 09/01/24 [Adderall] Dextroamphetamine/Amphetamine 20 mg PO BID@0800,1200 09/01/24 09/01/24 [Adderall] Previous Rx's Medication Instructions Recorded Cyclobenzaprine [Flexeril] 10 mg PO TID 3 Days #10 tab 09/01/24 Allergies Allergy/AdvReac Type Severity Reaction Status Date / Time duloxetine [From Cymbalta] AdvReac Chest Verified 09/01/24 18:55 Pain/Increased Heart Rate Review of Systems ROS Statement: Those systems with pertinent positive or pertinent negative responses have been documented in the HPI. ROS Other: All systems not noted in ROS Statement are negative. Past Medical History Past Medical History: No Reported History Additional Past Medical History / Comment(s): ovarian cysts, scoliosis History of Any Multi-Drug Resistant Organisms: None Reported Past Surgical History: Tonsillectomy, Tubal Ligation Past Anesthesia/Blood Transfusion Reactions: No Reported Reaction Past Psychological History: ADD/ADHD, Anxiety, Depression Smoking Status: Former smoker Past Alcohol Use History: None Reported Past Drug Use History: None Reported - Past Family History Mother Additional Family Medical History / Comment(s): depression Father Family Medical History: No Reported History Additional Family Medical History / Comment(s): bipolar General Exam - General Exam Comments Initial Comments: PE: CONSTITUTIONAL: [no apparent distress, well appearing] SKIN: Warm, dry, no jaundice, hives or petechiae EYES: Pupils are equally round, extraocular movements intact without nystagmus, clear conjunctiva, non-icteric sclera HENT: Normocephalic, atraumatic, moist mucus membranes, oropharynx clear without exudates NECK: , Full range of motion, normal appearance, right sided paraspinal muscle tenderness near C4-5 PULMONARY: Clear to auscultation without wheezes, rhonchi, or rales, normal excursion, no accessory muscle use and no stridor CARDIOVASCULAR: Regular rate, rhythm, normal S1 and S2. No appreciated murmurs, rubs or gallops. Strong radial pulses with intact distal perfusion. No lower extremity edema GASTROINTESTINAL: Soft, active bowel sounds throughout, non-tender, non- distended, no palpable masses, no rebound or guarding. No hepatosplenomegaly GENITOURINARY: MUSCULOSKELETAL: Extremities have no gross deformity, no edema, redness, or swelling. NEUROLOGIC:_a/o x 3, GCS 15, normal mentation and speech. Moves all extremities x 4 without motor or sensory deficit cranial nerves: II (visual bell without defects), III, IV and (extraocular movements are intact, pupils are equal with normal reaction to light), V (intact jaw opening, endorses tingling along the 2nd branch of the 5th cranial nerve), VII (no facial droop), IX and X (normal palate movement, midline uvula, normal voice), XI (symmetrical shoulder shrug and lateral head rotation against resistance), XII (midline tongue protrusion). Motor strength is 5/5 in all extremities. No abnormal movements. Normal muscle tone. Sensation to light touch is intact bilaterally. No cerebellar signs ([id number], [id number], and rapid alternating movements are normal) PSYCHIATRIC:_normal mood and affect, thought process is clear and linear Limitations: no limitations Course Vital Signs 09/01/24 14:01 Temperature 98 F Pulse Rate 82 Respiratory 20 Rate Blood Pressure 154/85 O2 Sat by Pulse 99 Oximetry Medical Decision Making - Medical Decision Making Was pt. sent in by a medical professional or institution (ELEUTERIO Ogedn, FINGERPRINT EXPERT, urgent care, hospital, or longterm...) When possible be specific @ -No Did you speak to anyone other than the patient for history (EMS, parent, family, police, friend...)? What history was obtained from this source @ -No Did you review nursing and triage notes (agree or disagree)? Why? @ -I reviewed nursing and triage notes- disagree with triage notes, pt does not currently display weakness Were old charts reviewed (outside hosp., previous admission, EMS record, old E KG, old radiological studies, urgent care reports/EKG's, longterm records)? Report findings @ -Medical records reviewed Differential Diagnosis (chest pain, altered mental status, abdominal pain women, abdominal pain men, vaginal bleeding, weakness, fever, dyspnea, syncope, headache, dizziness, GI bleed, back pain, seizure, CVA, palpatations, mental health, musculoskeletal)? @ Differential diagnosis remains broad however top considerations include cervical radiculopathy, atypical migraine, TIA, intracranial hemorrhage, intracranial mass, muscle spasm, electrolyte abnormality, MS, guillan-barre syndrome, this is not an all inclusive list EKG interpreted by me (3pts min.). @ -As above X-rays interpreted by me (1pt min.). @ Personally reviewed CXR, I see no massess, consolidations or cardiomegaly, I agree with radiologist interpretation CT interpreted by me (1pt min.). @Personally reviewed CT brain, I see no evidence of hemorrhage or mass effect, agree with radiologist interpretation, personally reviewed CTA, I see no evidence of large vessel occlusion or dissection, I agree with radiologist interpretation U/S interpreted by me (1pt. min.). @ -None done What testing was considered but not performed or refused? (CT, X-rays, U/S, labs)? Why? @ -None What meds were considered but not given or refused? Why? @ -None Did you discuss the management of the patient with other professionals (professionals i.e. ELEUTERIO Ogden, FINGERPRINT EXPERT, lab, RT, psych nurse, high school social studies teacher, gasoline dragline operator, teacher, sales officer, therapeutic case manager)? Give summary @ -No Was smoking cessation discussed for >3mins.? @ -No Was critical care preformed (if so, how long)? @ -No Were there social determinants of health that impacted care today? How? (Homelessness, low income, unemployed, alcoholism, drug addiction, transportation, low edu. Level, literacy, decrease access to med. care, [facility], rehab)? @ -No Was there de-escalation of care discussed even if they declined (Discuss DNR or withdrawal of care, Hospice)? @ -No What co-morbidities impacted this encounter? (DM, HTN, Smoking, COPD, CAD, Cancer, CVA, ARF, Chemo, Hep., AIDS, mental health diagnosis, sleep apnea, morbid obesity)? @ -None Was patient admitted / discharged? Hospital course, mention meds given and route, prescriptions, significant lab abnormalities, going to OR and other pertinent info. @Discharged- Patient is a 28-year-old female presenting today for intermittent right sided facial tingling, right upper and right lower extremity tingling, numbness and muscle spasms. On my assessment pt is resting comfortably in NAD. Neuro exam showed pt endorsing some tingling along the 2nd branch of the 5th cranial nerve, otherwise no focal neurologic deficits. NIH 0. Differential diagnosis as noted above, CT brain/CTA will be obtained to r/o hemorrhage, mass, dissection etc, comprehensive labs ordered, migraine coctktail minus toradol (until intracranial hemorrhage ruled out), muscle relaxant. Labs and imaging reviewed. Grossly within normal limits. Abnormal values not concerning for acute pathology related to presenting complaint. CT did no left maxillary sinusitis, patient states has been treated for this last week. On reassessment, updated pt to findings, states her symptoms are improving but notes a spasming pain down her right arm and around the right side of her neck. Will trial Zanaflex and Toradol, symptoms at this point seem most consistent with cervical radiculopathy. If symptoms continue to improve, anticipate discharge. However if worsen or persistent will admit. Pt agreeable with POC. On reassesment pt endorses continued improvement of symptoms, would like to be discharged home. Pt will be discharged with prescription for flexeril and strict return precautions. Pt verbalized understanding and was dischargeIn my medical judgment there is currently no evidence of an immediate life-threatening or surgical condition. Discharge is therefore indicated at this time. Discharge treatment instructions, follow up instructions, and appropriate emergency department return precautions were discussed with the patient and/or medical decision maker. Patient and/or medical decision maker expressed understanding of and agreed with the treatment plan, follow up instructions, and emergency department return precaution. All patient's and/or medical decision maker's questions were answered. The patient was instructed to return to the ED for any changes in symptoms, persistent symptoms, inability to obtain proper follow-up or for any further concerns. Patient received verbal and written instructions for this condition. d home in good condition. Undiagnosed new problem with uncertain prognosis? @ -No Drug Therapy requiring intensive monitoring for toxicity (Heparin, Nitro, Insulin, Cardizem)? @ -No Were any procedures done? @ -No Diagnosis/symptom? @ Parasthesias, cervical radiculopathy Acute, or Chronic, or Acute on Chronic? @acute Uncomplicated (without systemic symptoms) or Complicated (systemic symptoms)? @ -complicated Side effects of treatment? @ -No Exacerbation, Progression, or Severe Exacerbation? @ -No Poses a threat to life or bodily function? How? (Chest pain, [place], NE, pneumonia, PE, COPD, DKA, ARF, appy, cholecystitis, CVA, Diverticulitis, Homicidal, Suicidal, threat to staff... and all critical care pts) @ -No, not at time of discharge - Lab Data Result diagrams: 09/01/24 16:15 09/01/24 16:15 Lab Results 09/01/24 09/01/24 09/01/24 Range/Units 16:15 16:15 16:15 WBC 6.32 (4.50-10.00) 10*3/uL RBC 3.96 L (4.10-5.20) 10*6/uL Hgb 13.3 (12.0-15.0) g/dL Hct 37.6 (37.2-46.3) % MCV 94.9 (80.0-97.0) fL MCH 33.6 H (27.0-32.0) pg MCHC 35.4 (32.0-37.0) g/dL Plt Count 250 (140-440) 10*3/uL MPV 9.7 (9.5-12.2) fL Immature Gran % (Auto) 0.3 % Neutrophils % 70.7 % Lymphocytes % 21.0 % Monocytes % 6.6 % Eosinophils % 0.8 % Basophils % 0.6 % Immature Gran # 0.02 (0.00-0.04) 10*3/uL Neutrophils # 4.46 (1.80-7.70) 10*3/uL Lymphocytes # 1.33 (0.90-5.00) 10*3/uL Monocytes # 0.42 (0.20-1.00) 10*3/uL Eosinophils # 0.05 (0.04-0.35) 10*3/uL Basophils # 0.04 (0.00-0.10) 10*3/uL PT 11.1 (10.0-12.5) sec INR 1.0 (<1.2) APTT 26.2 (22.0-30.0) sec Sodium 136 L (137-145) mmol/L Potassium 4.4 (3.5-5.1) mmol/L Chloride 101 (98-107) mmol/L Carbon Dioxide 23 (22-30) mmol/L Anion Gap 12 mmol/L BUN 12 (7-17) mg/dL Creatinine 0.51 L (0.52-1.04) mg/dL Est GFR (CKD-EPI)AfAm >90 (>60 ml/min/1.73 sqM) Est GFR (CKD-EPI)NonAf >90 (>60 ml/min/1.73 sqM) Glucose 91 (74-99) mg/dL Calcium 10.0 (8.4-10.2) mg/dL Total Bilirubin 1.4 H (0.2-1.3) mg/dL AST 31 (14-36) U/L ALT 18 (4-34) U/L Alkaline Phosphatase 43 (38-126) U/L Creatine Kinase 73 (30-135) U/L Troponin I (0.000-0.034) ng/mL Total Protein 7.7 (6.3-8.2) g/dL Albumin 4.8 (3.5-5.0) g/dL HCG, Qual Not Detected 09/01/24 Range/Units 16:15 WBC (4.50-10.00) 10*3/uL RBC (4.10-5.20) 10*6/uL Hgb (12.0-15.0) g/dL Hct (37.2-46.3) % MCV (80.0-97.0) fL MCH (27.0-32.0) pg MCHC (32.0-37.0) g/dL Plt Count (140-440) 10*3/uL MPV (9.5-12.2) fL Immature Gran % (Auto) % Neutrophils % % Lymphocytes % % Monocytes % % Eosinophils % % Basophils % % Immature Gran # (0.00-0.04) 10*3/uL Neutrophils # (1.80-7.70) 10*3/uL Lymphocytes # (0.90-5.00) 10*3/uL Monocytes # (0.20-1.00) 10*3/uL Eosinophils # (0.04-0.35) 10*3/uL Basophils # (0.00-0.10) 10*3/uL PT (10.0-12.5) sec INR (<1.2) APTT (22.0-30.0) sec Sodium (137-145) mmol/L Potassium (3.5-5.1) mmol/L Chloride (98-107) mmol/L Carbon Dioxide (22-30) mmol/L Anion Gap mmol/L BUN (7-17) mg/dL Creatinine (0.52-1.04) mg/dL Est GFR (CKD-EPI)AfAm (>60 ml/min/1.73 sqM) Est GFR (CKD-EPI)NonAf (>60 ml/min/1.73 sqM) Glucose (74-99) mg/dL Calcium (8.4-10.2) mg/dL Total Bilirubin (0.2-1.3) mg/dL AST (14-36) U/L ALT (4-34) U/L Alkaline Phosphatase (38-126) U/L Creatine Kinase (30-135) U/L Troponin I <0.012 (0.000-0.034) ng/mL Total Protein (6.3-8.2) g/dL Albumin (3.5-5.0) g/dL HCG, Qual Disposition Clinical Impression: Cervical radiculopathy Disposition: HOME SELF-CARE Condition: Good Instructions (If sedation given, give patient instructions): Cervical Radiculopathy (ED), Muscle Spasm (ED) Additional Instructions: Every disease is a spectrum and a small chance still exists that a serious condition could develop, for this reason, please monitor yourself closely for new, changing or worsening symptoms, new changes in vision new numbness or weakness, severe headache symptoms that persist beyond 24 hours, fever, inability to tolerate/keep down fluids or your medications, inability to follow up with outpatient providers as instructed and should you experience these symptoms or should you have any further concerns for your wellbeing please return to the ED or call 911 immediately. Your pain can be treated with ibuprofen and acetaminophen. You can take up to 400-600 mg of ibuprofen (Advil, Motrin) 3 times daily (every 8 hours) but can also use lower doses if this relieves your pain. Some people prefer naproxen (Aleve, Naprosyn) which can be taken in doses of 500 mg up to twice a day. Do not take both of these medicines together, and do not combine either with ketorolac (Toradol), meloxicam (Mobic), or indomethacin (Tivorbex). Some people can develop stomach discomfort with higher doses of either ibuprofen or naproxen, if this develops decrease your dose or stop taking it. If you need to take this dose daily for more than a week, please schedule an appointment for re-evaluation with your PCP. Please take these medications with food. You can take up to 1000 mg of acetaminophen (Tylenol) every 6 hours. Be careful as this is included in some medicines like Nyquil, [place], Percocet, Vicodin, STANBACK, Goody's Powders, and Excedrin. You can also use lidocaine patches for topical pain. You can purchase 4% patches over the counter at most drug stores. These can be helpful for pain from your muscles or bones. Regarding sinus infection, you can use flonase once daily for one week. PLEASE call your primary care physician as soon as possible to arrange / discuss plan for followup appointment. Appointment in the next 1-3 days is strongly encouraged if possible. PLEASE let us know here before you leave if there is anything further we can do to be of any assistance. Take care and feel Better! Prescriptions: Cyclobenzaprine [Flexeril] 10 mg PO TID 3 Days #10 tab Is patient prescribed a controlled substance at d/c from ED?: No Referrals: Yvette Lin DO [Primary Care Provider] - 1-2 days Ammy Doherty DO [Doctor of Osteopathic Medicine] - 1-2 days
[2024-09-01] MEDS: SODIUM CHLORIDE 0.9% 1,000 ML IV STA (16:16)
[2024-09-01] MEDS: CYCLOBENZAPRINE 10 MG TAB PO STA (16:17)
[2024-09-01] MEDS: diphenhydrAMINE 50 MG/ML 1 ML VIAL IVP STA (16:28)
[2024-09-01] MEDS: METOCLOPRAMIDE 5 MG/ML 2 ML VIAL IVP STA (16:29)
[2024-09-01 16:41] LABS: Basophils # (A) 0.04 10*3/uL (0.00-0.10); Basophils % (A) 0.6 %; Eosinophils # (A) 0.05 10*3/uL (0.04-0.35); Eosinophils % (A) 0.8 %; HCT 37.6 % (37.2-46.3); HGB 13.3 g/dL (12.0-15.0); Lymphocytes # (A) 1.33 10*3/uL (0.90-5.00); MCH 33.6 pg (27.0-32.0); MCHC 35.4 g/dL (32.0-37.0); MCV 94.9 fL (80.0-97.0); Mean Platelet Volume 9.7 fL (9.5-12.2); Monocytes # (A) 0.42 10*3/uL (0.20-1.00); Monocytes % (A) 6.6 %; Neutrophils # (A) 4.46 10*3/uL (1.80-7.70); Neutrophils % (A) 70.7 %; Platelet Count 250 10*3/uL (140-440); RBC 3.96 10*6/uL (4.10-5.20); RDW 12.2 % (11.5-14.5); WBC 6.32 10*3/uL (4.50-10.00)
[2024-09-01 16:42] LABS: HCG,Qualitative Serum Not Detected
[2024-09-01 16:45] LABS: ALT 18 U/L (4-34); African American GFR (CKD) >90 (>60 ml/min/1.73 sqM); Albumin 4.8 g/dL (3.5-5.0); Anion Gap 12 mmol/L; Blood Urea Nitrogen 12 mg/dL (7-17); Carbon Dioxide 23 mmol/L (22-30); Chloride 101 mmol/L (98-107); Creatine Kinase 73 U/L (30-135); Glucose 91 mg/dL (74-99); Non-African American GFR(CKD) >90 (>60 ml/min/1.73 sqM); Sodium 136 mmol/L (137-145); Total Bilirubin 1.4 mg/dL (0.2-1.3); Total Protein 7.7 g/dL (6.3-8.2)
[2024-09-01 16:46] LABS: AST 31 U/L (14-36); Alkaline Phosphatase 43 U/L (38-126); Potassium 4.4 mmol/L (3.5-5.1)
[2024-09-01 16:55] LABS: Partial Thromboplastin Time 26.2 sec (22.0-30.0); Prothrombin Time 11.1 sec (10.0-12.5)
--- NOTE | 2024-09-01 17:23 | XR ---
EXAMINATION TYPE: XR chest 2V DATE OF EXAM: 09/01/2024 5:20 PM COMPARISON: 07/03/2019 CLINICAL INDICATION: Female, 28 years old with history of altered mental status, TECHNIQUE: XR chest 2V view(s) obtained. FINDINGS: The heart size is normal. The pulmonary vasculature is normal. The lungs are clear. IMPRESSION: 1. No acute pulmonary process. [facility], Workstation: [facility], 09/01/2024 5:21 PM
--- NOTE | 2024-09-01 17:45 | CT ---
EXAMINATION TYPE: CT brain wo con DATE OF EXAM: 09/01/2024 5:37 PM COMPARISON: 04/12/2023 CLINICAL INDICATION: Female, 28 years old with history of intermittent right sided numbness, weakness numbness to right side started at 1130 TECHNIQUE: CT of the brain is performed utilizing 3 mm thick sections through the posterior fossa and 3 mm thick sections through the remaining calvarium. Study is performed within 24 hours of arrival to the hospital. Contrast used: mL of , (none if empty) CT DLP: 1582.6 mGycm, Automated exposure control for dose reduction was used. FINDINGS: No abnormal hyperdensity is present to suggest an acute intracranial hemorrhage. No mass lesion is evident. No acute infarcts are evident. Ventricles and sulci are appropriate for the patient age. There is an air-fluid level within the left maxillary sinus. Correlate for left maxillary sinusitis. The remaining nasal sinuses and mastoid air cells are clear. IMPRESSION: 1. No acute intracranial process. Follow up MRI can be performed as clinically indicated. 2. Clinical correlation for acute left maxillary sinusitis [facility], Workstation: [facility], 09/01/2024 5:42 PM
--- NOTE | 2024-09-01 17:55 | CT ---
EXAMINATION TYPE: CT angio head neck DATE OF EXAM: 09/01/2024 5:30 PM COMPARISON: None. CLINICAL INDICATION: Female, 28 years old with history of intermittent right sided numbness, weakness numbness to right side started at 1130 TECHNIQUE: CTA scan is performed with axial images are obtained, coronal and sagittal reformatted em ges are reviewed. MIP images created on a separate workstation and submitted for review. 3-D reconstr ucted images are created on an independent workstation and reviewed. Source images are reviewed. DELMIS CET criteria was used in interpretation of this exam? Contrast used:65 mL of Isovue 370 without and with IV Contrast, (none if empty) Oral contrast used: (none if empty) CT DLP: combined 1582.6 mGycm, Automated exposure control for dose reduction was used. FINDINGS: Carotid/Vascular Structures: There is a 3 vessel arch. Common carotid arteries bifurcate into internal and external carotid arteries without significant clyde w limiting stenosis. Vertebral arteries are codominant. Internal carotid arteries and vertebral arteries are patent to the skull base. Cervical of [place]: Vertebral basilar system appears normal. Posterior cerebral vasculature is unrema rkable. Internal carotid arteries bifurcate normally into A1 and M1 segments. A2 segments are normal. The anterior communicating artery is patent. The right posterior communicating artery is absent. The left posterior communicating artery is absent. Other: Air-fluid level in left maxillary sinus. Correlate for acute maxillary sinusitis. IMPRESSION: 1. No flow-limiting stenosis bilateral carotid bifurcations. 2. Normal [place] of [place]. 3. Correlate for acute left maxillary sinusitis. [facility], Workstation: [facility], 09/01/2024 5:52 PM
[2024-09-01] MEDS: tiZANidine 4 MG TAB PO STA (18:49)
[2024-09-01] MEDS: KETOROLAC 15 MG/ML 1 ML VIAL IVP STA (18:49)
== END 2024-09-01 20:15 | disposition home or self-care (01) ==
LOC: EC 13:39
DX: M54.12 Radiculopathy, cervical region (principal); Z87.891 Personal history of nicotine dependence; Z88.8 Allergy status to other drugs, medicaments and biological substances
CPT/HCPCS: 36415; 80053; 82550; 84484; 85025; 85610; 85730; 84703; 71046; 70496; 70450; 70498; 99284; 96374; 96375 ×2; 96361; J1200; J2765; J1885; Q9967